=== PATIENT | male | born 1965 | race Caucasian/White ===

== ENCOUNTER 2019-11-16 13:36 | Outpatient (REF) | payer MEDICAID, SELFPAY ==
[2019-11-17 12:03] LABS: CT PCR NOT DETECTED (Not Detect.); NG PCR NOT DETECTED (Not Detect.)
== END 2019-11-16 13:37 | disposition home or self-care (01) ==
LOC: HO.LNP 13:36
PROVIDERS: Visit Provider Internal Medicine
DX: F11.20 Opioid dependence, uncomplicated (principal); R30.0 Dysuria
CPT/HCPCS: 80305; 87491; 87591; 99212

== ENCOUNTER → 2019-11-21 09:41 | Outpatient (BNVA) | payer MEDICAID, SELFPAY | PROVIDERS: PCP Internal Medicine; Visit Provider Physician Assistant | DX: Z01.818 Encounter for other preprocedural examination (principal); K21.9 Gastro-esophageal reflux disease without esophagitis | CPT/HCPCS: 99203 ==

== ENCOUNTER 2019-11-23 13:49 | Inpatient (IN) | payer MEDICAID, OTHER, SELFPAY ==
[2019-11-23 13:59] VITALS: BP 109/65; BP 136/76; PULSE 104; PULSE 72; RESP 18; TEMP 36.6; O2SAT 93; O2SAT 98; BMI 26.6
[2019-11-23 14:40] LABS: MANUAL DIFF FLAG NO
[2019-11-23 14:45] LABS: Basophils Percent Auto 0.2 % (0-2); Eosinophils Absolute Auto 0.1 X10*3/uL (0.0-0.4); Eosinophils Percent Auto 0.4 % (0-4); Hematocrit 35.8 % (42-52); Hemoglobin 12.4 g/dl (14.0-18.0); Imm Gran Abs Auto 0.06 X10*3/uL (0.00-0.03); Imm Gran Pct Auto 0.4 % (0.0-0.4); Lymphocytes Absolute Auto 2.1 X10*3/uL (1.2-4.9); Lymphocytes Percent Auto 13.6 % (20-40); Mean Corpuscular HGB Conc 34.6 g/dl (31.0-36.0); Mean Corpuscular Hemoglobin 31.6 pg (27.0-33.0); Mean Corpuscular Volume 91.1 fL (80-98); Mean Platelet Volume 8.9 fL (9.4-12.4); Monocytes Absolute Auto 0.8 X10*3/uL (0.1-1.2); Monocytes Percent Auto 5.2 % (2-11); Neutrophils Absolute Auto 12.4 X10*3/uL (2.0-8.3); Neutrophils Percent Auto 80.2 % (45-73); Platelet Count 161 X10*3/uL (160-400); Red Blood Count 3.93 X10*6/uL (4.60-5.80); Red Cell Distribution Width 12.2 % (11.0-16.0); White Blood Count 15.5 X10*3/uL (4.8-10.8)
[2019-11-23 15:03] LABS: Ethanol < 10 mg/dL
[2019-11-23 15:06] LABS: Amphetamine Screen Urine Not Detected (Not Detect); Barbiturates, Urine Not Detected (Not Detect); Benzodiazepines Screen Urine POSITIVE (Not Detect); Cannabinoid Screen Urine Not Detected (Not Detect); Cocaine Screen Urine POSITIVE (Not Detect); Opiate Screen Urine POSITIVE (Not Detect); Phencyclidine Screen Urine Not Detected (Not Detect)
[2019-11-23 15:10] LABS: Acetaminophen LAB < 1 mcg/mL (<30)
[2019-11-23 15:18] LABS: Salicylate < 5.0 mg/dL (15-30)
--- NOTE | 2019-11-23 15:43 | XR_ITS ---
EXAMINATION: XR CHEST CLINICAL INFORMATION: Leukocytosis COMPARISON: None TECHNIQUE: Frontal view of the chest was obtained. FINDINGS: The cardiac and mediastinal contours are normal. The lungs are clear without evidence of a pneumonia. There may be slight elevation of the right hemidiaphragm. There is no pleural effusion or pneumothorax. Bony structures are unremarkable. IMPRESSION: No evidence of pneumonia.
--- NOTE | 2019-11-23 15:43 | ECG_ITS ---
Test Reason : MEDICAL CLEARANCE Blood Pressure : / mmHG Vent. Rate : 075 BPM Atrial Rate : 075 BPM P-R Int : 160 ms QRS Dur : 098 ms QT Int : 404 ms P-R-T Axes : 058 -22 051 degrees QTc Int : 451 ms Normal sinus rhythm RSR' or QR pattern in V1 suggests right ventricular conduction delay Otherwise normal ECG No previous ECGs available Referred By: Lexa Cruz Electronically Signed By:SHARI MARCUS MD
--- NOTE | 2019-11-23 15:46 | ED_ITS ---
HPI - Psych General Chief Complaint: Psychiatric Symptoms <Lexa Cruz NP - Last Filed: 11/23/19 20:57> Stated Complaint: CRISIS <Lexa Cruz NP - Last Filed: 11/23/19 20:57> Time Seen by Provider: 11/23/19 15:42 <Lexa Cruz NP - Last Filed: 11/23/19 20:57> Source: patient <Lexa Cruz NP - Last Filed: 11/23/19 20:57> Mode of arrival: ambulatory <Lexa Cruz NP - Last Filed: 11/23/19 20:57> Limitations: no limitations <Lexa Cruz NP - Last Filed: 11/23/19 20:57> History of Present Illness HPI Narrative: 54-year-old male with past medical history that is significant for depression, anxiety, hypertension, gastroesophageal reflux disease and he reports history of polysubstance abuse with heroin and cocaine in the past has been clean for many years now on Suboxone has recently has had increased stressors in relation to his relationship and social stressors not wound to elaborate on this but did get into argument with his partner and has been feeling depressed and suicidal. No specific plan expressed. Otherwise he denies any medical complaints. No fever chills. No cough. No recent travel or sick contacts. <Lexa Cruz NP - Last Filed: 11/23/19 20:57> MD complaint: suicidal ideation and feels depressed <eLxa Cruz NP - Last Filed: 11/23/19 20:57> Onset (ago): day(s) <Lexa Cruz NP - Last Filed: 11/23/19 20:57> Duration: constant <Lexa Cruz NP - Last Filed: 11/23/19 20:57> History of same: Yes <Lexa Cruz NP - Last Filed: 11/23/19 20:57> Relieving factors: none <Lexa Cruz NP - Last Filed: 11/23/19 20:57> Exacerbating factors: other ( Social stressors) <Lexa Cruz NP - Last Filed: 11/23/19 20:57> Associated psychiatric symptoms: none <Lexa Cruz NP - Last Filed: 11/23/19 20:57> Associated symptoms: denies other symptoms <Lexa Cruz NP - Last Filed: 11/23/19 20:57> Treatments prior to arrival: none <Lexa Cruz NP - Last Filed: 11/23/19 20:57> If self harm: admits thoughts of self harm <Lexa Cruz NP - Last Filed: 11/23/19 20:57> Related Data Home Medications: Home Medications Medication Instructions Recorded Confirmed alprazolam 0.5 mg tablet 0.5 mg PO BID 11/16/19 11/21/19 fluoxetine 20 mg capsule 20 mg PO DAILY 11/16/19 11/21/19 lisinopril 5 mg tablet 5 mg PO DAILY 11/16/19 11/21/19 melatonin 5 mg capsule mg PO BEDTIME cap 11/16/19 11/21/19 naloxone 4 mg/actuation nasal spray 4 mg INTRANASAL Q2M PRN 11/16/19 11/21/19 omeprazole 20 mg capsule,delayed 20 mg PO DAILY 11/16/19 11/21/19 release valacyclovir 1 gram tablet 1,000 mg PO BID 11/16/19 11/21/19 Previous Rx's Medication Instructions Recorded buprenorphine 8 mg-naloxone 2 mg 2 film SUBLINGUAL DAILY 30 Days 11/16/19 sublingual film #60 ea bisacodyl 5 mg tablet,delayed 5 mg PO .COMPLEX #4 tab 11/21/19 release <Lexa Cruz NP - Last Filed: 11/23/19 20:57> Allergies/Adverse Reactions: Allergies Allergy/AdvReac Type Severity Reaction Status Date / Time sulfamethoxazole Allergy Nausea and Verified 11/16/19 14:07 [From Bactrim] Vomiting trimethoprim [From Bactrim] Allergy Nausea and Verified 11/16/19 14:07 Vomiting <Lexa Cruz NP - Last Filed: 11/23/19 20:57> Review of Systems Review of Systems: Constitutional: No Weight loss, No Fever, No Chills, No Night Sweats, No Fatigue, No Malaise ENT/Mouth: No Hearing loss, No Ear Pain, No Nasal Congestion, No Sinus Pain, No Hoarseness, No sore throat, No Rhinorrhea, No Swallowing Difficulty Eyes: No Eye Pain, No Swelling, No Redness, No Foreign Body, No Discharge, No Vision Changes Cardiovascular: No Chest Pain, No SOB, No Dyspnea on Exertion, No Orthopnea, No Edema, No Palpitations Respiratory: No Cough, No Sputum, No Wheezing, No Smoke Exposure, No Dyspnea Gastrointestinal: No Nausea, No Vomiting, No Diarrhea, No Constipation, No abdominal Pain, No Hematochezia, No Melena Genitourinary: no irregular bleeding, No Dysuria, No Urinary Frequency, No Hematuria, No Urinary Incontinence, No Urgency, No Flank Pain, No Urinary Flow Changes, No Hesitancy Musculoskeletal: No joint pain, No Myalgias, No Joint Swelling Skin: No Skin Lesions, No rash Neuro: No Weakness, No Numbness, No Paresthesias, No Loss of Consciousness, No Dizziness, No Headache Psych: as noted in HPI Heme/Lymph: No Bruising, No Bleeding,No Lymphadenopathy Endocrine: No Polyuria, No Polydipsia, No Temperature Intolerance <Lexa Cruz NP - Last Filed: 11/23/19 20:57> Yes all other systems are reviewed and are negative <Lexa Cruz NP - Last Filed: 11/23/19 20:57> [facility] Past Medical History Attestation statement: The following information was validated with the patient. <Lexa Cruz NP - Last Filed: 11/23/19 20:57> Medical History: Medical History (Updated 11/23/19 @ 20:57 by Lexa Cruz NP) Acid reflux Asthma Dysuria Encounter for screening colonoscopy Opioid use disorder <Lexa Cruz NP - Last Filed: 11/23/19 20:57> Surgical History: Surgical History (Updated 11/21/19 @ 09:44 by Cyndie Ernandez MA) History of colonoscopy Hx of endoscopy <Lexa Cruz NP - Last Filed: 11/23/19 20:57> Family History Family History: Family History (Updated 11/21/19 @ 09:46 by Cyndie Ernandez MA) Father History of stomach cancer Mother Hx of diabetes mellitus <Lexa Cruz NP - Last Filed: 11/23/19 20:57> Social History Social History: Social History (Updated 11/21/19 @ 10:05 by Nayeli Colon PA-C) Alcohol intake: never Smoking Status: Never smoker Smoked in Last 30 Days: No Use of substances other than those prescribed or required for medical reasons: Yes Substance Use Type: Opiates Advance Directives: No Advance Directives Information Provided: Yes <Lexa Cruz NP - Last Filed: 11/23/19 20:57> Physical Exam Vital Signs: Vital Signs: Vital Signs Temp Pulse Resp BP Pulse Ox 11/23/19 17:02 97.4 F 78 16 60/55 L 95 11/23/19 13:59 98 F 104 H 18 109/65 93 Body Mass Index 26.6 Reviewed <Lexa Cruz NP - Last Filed: 11/23/19 20:57> Vital Signs: Vital Signs Temp Pulse Resp BP Pulse Ox 11/23/19 17:02 97.4 F 78 16 60/55 L 95 11/23/19 13:59 98 F 104 H 18 109/65 93 Body Mass Index 26.6 <Yuan Ren MD - Last Filed: 11/23/19 21:17> Course Course Course Narrative: I have reviewed the chart <Yuan Ren MD - Last Filed: 11/23/19 21:17> Reevaluation(s) Reevaluation #1: at this time resting comfortably eating drinking. Labs reveal significant leukocytosis of 15.2 with comparison to his previous 2 which are 5. his drug screen shows positive for opiates and cocaine. Now endorses cocaine use. Could be a source of his leukocytosis. EKG chest x-ray and rapid COVID ordered before medical clearance. Remained stable. Hemodynamically stable. <Lexa Cruz NP - Last Filed: 11/23/19 20:57> Time: 15:45 <Lexa Cruz NP - Last Filed: 11/23/19 20:57> Reevaluation #3: 2110 Sign out to night team pending crisis evaluation. Remained stable. <Lexa Cruz NP - Last Filed: 11/23/19 20:57> MDM - Psych MDM Narrative Medical decision making narrative: offers no medical complaints. At this time will obtain medical screening labs and crisis evaluation <Lexa Cruz NP - Last Filed: 11/23/19 20:57> Differential Diagnosis Differential diagnosis: Likely acute psychosis, homicidal ideation, suicidal ideation, depression, drug-induced psychotic disorder, acute anxiety, substance abuse and mood disorde r <Lexa Cruz NP - Last Filed: 11/23/19 20:57> Restraints Face to Face Assessment: Face to Face Assessment: Current Situation: After assessment of the patient, a review of the pertinent medical record and a discussion with nursing staff, I feel the patient requires a restrain intervention. Reaction To: [] Medical Condition: [] Behavioral State: [] Continued Need: [] <Lexa Cruz NP - Last Filed: 11/23/19 20:57> Lab Data Result diagrams: : 11/23/19 14:30 <Lexa Cruz NP - Last Filed: 11/23/19 20:57> Labs: Lab Results 11/23/19 11/23/19 11/23/19 Range/Units 14:30 14:30 14:30 WBC 15.5 H (4.8-10.8) X10*3/uL RBC 3.93 L (4.60-5.80) X10*6/uL Hgb 12.4 L (14.0-18.0) g/dl Hct 35.8 L (42-52) % MCV 91.1 (80-98) fL MCH 31.6 (27.0-33.0) pg MCHC 34.6 (31.0-36.0) g/dl RDW 12.2 (11.0-16.0) % Plt Count 161 (160-400) X10*3/uL MPV 8.9 L (9.4-12.4) fL Immature Gran % (Auto) 0.4 (0.0-0.4) % Neut % (Auto) 80.2 H (45-73) % Lymph % (Auto) 13.6 L (20-40) % Benson % (Auto) 5.2 (2-11) % Eos % (Auto) 0.4 (0-4) % Baso % (Auto) 0.2 (0-2) % Lymph # (Auto) 2.1 (1.2-4.9) X10*3/uL Benson # (Auto) 0.8 (0.1-1.2) X10*3/uL Eos # (Auto) 0.1 (0.0-0.4) X10*3/uL Baso # (Auto) 0.0 (0.0-0.2) X10*3/uL Abs Immat Gran (auto) 0.06 H (0.00-0.03) X10*3/uL Absolute Neuts (auto) 12.4 H (2.0-8.3) X10*3/uL Absolute Nucleated RBC 0.000 (0.0-0.012) X10*3/uL Nucleated RBC % (auto) 0.0 (0.0-0.2) /100WBC Salicylates < 5.0 L (15-30) mg/dL Urine Opiates Screen POSITIVE H (Not Detect) Acetaminophen < 1 (<30) mcg/mL Ur Barbiturates Screen Not Detected (Not Detect) Ur Phencyclidine Scrn Not Detected (Not Detect) Ur Amphetamines Screen Not Detected (Not Detect) U Benzodiazepines Scrn POSITIVE H (Not Detect) Urine Cocaine Screen POSITIVE H (Not Detect) U Marijuana (THC) Screen Not Detected (Not Detect) Ethyl Alcohol mg/dL 1016/20 Range/Units 14:30 WBC (4.8-10.8) X10*3/uL RBC (4.60-5.80) X10*6/uL Hgb (14.0-18.0) g/dl Hct (42-52) % MCV (80-98) fL MCH (27.0-33.0) pg MCHC (31.0-36.0) g/dl RDW (11.0-16.0) % Plt Count (160-400) X10*3/uL MPV (9.4-12.4) fL Immature Gran % (Auto) (0.0-0.4) % Neut % (Auto) (45-73) % Lymph % (Auto) (20-40) % Benson % (Auto) (2-11) % Eos % (Auto) (0-4) % Baso % (Auto) (0-2) % Lymph # (Auto) (1.2-4.9) X10*3/uL Benson # (Auto) (0.1-1.2) X10*3/uL Eos # (Auto) (0.0-0.4) X10*3/uL Baso # (Auto) (0.0-0.2) X10*3/uL Abs Immat Gran (auto) (0.00-0.03) X10*3/uL Absolute Neuts (auto) (2.0-8.3) X10*3/uL Absolute Nucleated RBC (0.0-0.012) X10*3/uL Nucleated RBC % (auto) (0.0-0.2) /100WBC Salicylates (15-30) mg/dL Urine Opiates Screen (Not Detect) Acetaminophen (<30) mcg/mL Ur Barbiturates Screen (Not Detect) Ur Phencyclidine Scrn (Not Detect) Ur Amphetamines Screen (Not Detect) U Benzodiazepines Scrn (Not Detect) Urine Cocaine Screen (Not Detect) U Marijuana (THC) Screen (Not Detect) Ethyl Alcohol < 10 mg/dL <Lexa Cruz NP - Last Filed: 11/23/19 20:57> Lab Results 11/23/19 11/23/19 11/23/19 Range/Units 14:30 14:30 14:30 WBC 15.5 H (4.8-10.8) X10*3/uL RBC 3.93 L (4.60-5.80) X10*6/uL Hgb 12.4 L (14.0-18.0) g/dl Hct 35.8 L (42-52) % MCV 91.1 (80-98) fL MCH 31.6 (27.0-33.0) pg MCHC 34.6 (31.0-36.0) g/dl RDW 12.2 (11.0-16.0) % Plt Count 161 (160-400) X10*3/uL MPV 8.9 L (9.4-12.4) fL Immature Gran % (Auto) 0.4 (0.0-0.4) % Neut % (Auto) 80.2 H (45-73) % Lymph % (Auto) 13.6 L (20-40) % Benson % (Auto) 5.2 (2-11) % Eos % (Auto) 0.4 (0-4) % Baso % (Auto) 0.2 (0-2) % Lymph # (Auto) 2.1 (1.2-4.9) X10*3/uL Benson # (Auto) 0.8 (0.1-1.2) X10*3/uL Eos # (Auto) 0.1 (0.0-0.4) X10*3/uL Baso # (Auto) 0.0 (0.0-0.2) X10*3/uL Abs Immat Gran (auto) 0.06 H (0.00-0.03) X10*3/uL Absolute Neuts (auto) 12.4 H (2.0-8.3) X10*3/uL Absolute Nucleated RBC 0.000 (0.0-0.012) X10*3/uL Nucleated RBC % (auto) 0.0 (0.0-0.2) /100WBC Salicylates < 5.0 L (15-30) mg/dL Urine Opiates Screen POSITIVE H (Not Detect) Acetaminophen < 1 (<30) mcg/mL Ur Barbiturates Screen Not Detected (Not Detect) Ur Phencyclidine Scrn Not Detected (Not Detect) Ur Amphetamines Screen Not Detected (Not Detect) U Benzodiazepines Scrn POSITIVE H (Not Detect) Urine Cocaine Screen POSITIVE H (Not Detect) U Marijuana (THC) Screen Not Detected (Not Detect) Ethyl Alcohol mg/dL 11/23/19 Range/Units 14:30 WBC (4.8-10.8) X10*3/uL RBC (4.60-5.80) X10*6/uL Hgb (14.0-18.0) g/dl Hct (42-52) % MCV (80-98) fL MCH (27.0-33.0) pg MCHC (31.0-36.0) g/dl RDW (11.0-16.0) % Plt Count (160-400) X10*3/uL MPV (9.4-12.4) fL Immature Gran % (Auto) (0.0-0.4) % Neut % (Auto) (45-73) % Lymph % (Auto) (20-40) % Benson % (Auto) (2-11) % Eos % (Auto) (0-4) % Baso % (Auto) (0-2) % Lymph # (Auto) (1.2-4.9) X10*3/uL Benson # (Auto) (0.1-1.2) X10*3/uL Eos # (Auto) (0.0-0.4) X10*3/uL Baso # (Auto) (0.0-0.2) X10*3/uL Abs Immat Gran (auto) (0.00-0.03) X10*3/uL Absolute Neuts (auto) (2.0-8.3) X10*3/uL Absolute Nucleated RBC (0.0-0.012) X10*3/uL Nucleated RBC % (auto) (0.0-0.2) /100WBC Salicylates (15-30) mg/dL Urine Opiates Screen (Not Detect) Acetaminophen (<30) mcg/mL Ur Barbiturates Screen (Not Detect) Ur Phencyclidine Scrn (Not Detect) Ur Amphetamines Screen (Not Detect) U Benzodiazepines Scrn (Not Detect) Urine Cocaine Screen (Not Detect) U Marijuana (THC) Screen (Not Detect) Ethyl Alcohol < 10 mg/dL <Yuan Ren MD - Last Filed: 11/23/19 21:17> Imaging Data Chest x-ray: Radiologist's impression: [place] [id number] XRay Report Signed Patient: Rohan SalazarMR#: [id number] : 1965Acct:[id number] Age/Sex: 54 / MADM Date: 11/23/19 Loc: .ED Attending Dr: Ordering Physician: Lexa Cruz NP Date of Service: 11/23/19 Procedure(s): XR chest 1V Accession Number(s): [id number] cc: Lexa Cruz NP~ EXAMINATION: XR CHEST CLINICAL INFORMATION: Leukocytosis COMPARISON: None TECHNIQUE: Frontal view of the chest was obtained. FINDINGS: The cardiac and mediastinal contours are normal. The lungs are clear without evidence of a pneumonia. There may be slight elevation of the right hemidiaphragm. There is no pleural effusion or pneumothorax. Bony structures are unremarkable. IMPRESSION: No evidence of pneumonia. Dictated By:EVE BARAJAS MD Signed By:<Electronically signed by EVE BARAJAS MD in OV>11/23/19 1618 DD/ 1543 TD/TT: [employer] Operator: GERMAN <Lexa Crzu NP - Last Filed: 11/23/19 20:57> ECG Data Interpretation: Normal sinus rhythm Heart rate [address] segment changes No previous <Lexa Cruz NP - Last Filed: 11/23/19 20:57> Discharge Plan Discharge Clinical Impression: Depression, Drug-induced psychotic disorder, Polysubstance abuse <Lexa Cruz NP - Last Filed: 11/23/19 20:57> Prescriptions: No Action alprazolam 0.5 mg tablet 0.5 mg PO BID RF: 0 valacyclovir [Valtrex] 1 gram tablet 1,000 mg PO BID RF: 0 Narcan 4 mg/actuation spray,non-aerosol 4 mg intranasal Q2M PRNRF: 0 lisinopril 5 mg tablet 5 mg PO DAILY RF: 0 melatonin 5 mg capsule PO BEDTIME RF: 0 omeprazole 20 mg capsule,delayed release(DR/EC) 20 mg PO DAILY RF: 0 fluoxetine [Prozac] 20 mg capsule 20 mg PO DAILY RF: 0 buprenorphine-naloxone [Suboxone] 8-2 mg film 2 film sublingual DAILY 30 Days Qty: 60 RF: 0 bisacodyl [Dulcolax (bisacodyl)] 5 mg tablet,delayed release (DR/EC) 5 mg PO .COMPLEX Qty: 4 RF: 0 <Lexa Cruz NP - Last Filed: 11/23/19 20:57>
--- NOTE | 2019-11-23 16:44 | PC.NURSE ---
Late entry: reviewed labs w/ a liana- pt to xray as ordered, now returned.
[2019-11-23 17:02] VITALS: BP 60/55; PULSE 78; RESP 16; TEMP 36.3; O2SAT 95
--- NOTE | 2019-11-23 18:39 | PC.NURSE ---
Pt resting, resp unlabored. Covid testing held per Carlos Cruz.
--- NOTE | 2019-11-23 18:48 | PC.NURSE ---
faxed and called to [facility]
--- NOTE | 2019-11-23 20:18 | PC.NURSE ---
Pt currently sleeping. No signs of distress, respirations non-labored.
[2019-11-23 21:40] VITALS: BP 111/72; PULSE 82; RESP 18; TEMP 36.3; O2SAT 95
[2019-11-23] MEDS: ALPRAZolam 0.5 MG TABLET PO (22:29)
[2019-11-23] MEDS: Buprenorphine/Naloxone 8/2 mg FILM 2 FILM SUBLINGUAL (22:29)
[2019-11-23] MEDS: Zolpidem Tartrate 5 MG TABLET 10 MG PO (22:38)
--- NOTE | 2019-11-24 00:28 | PC.NURSE ---
REPORT GIVEN TO MARGE MONCADA ON [facility], AWAITING COVID RESULTS AND THEN PT WILL BE TRANSFERRED TO [facility]
[2019-11-24 00:33] LABS: SARS COV2 PCR INHOUSE NEGATIVE (Negative)
[2019-11-24 01:55] VITALS: BP 106/59; PULSE 80; RESP 18; TEMP 36.6; O2SAT 95; BMI 27.3
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
[2019-11-24 06:00] VITALS: BP 101/67; PULSE 79; RESP 18; TEMP 36.3
[2019-11-24 08:50] VITALS: BP 101/67; PULSE 79
[2019-11-24] MEDS: Omeprazole 20 MG CAPSULE.DR PO (08:50)
[2019-11-24] MEDS: FLUoxetine HCl 20 MG CAPSULE PO (08:50)
[2019-11-24] MEDS: ALPRAZolam 0.5 MG TABLET PO ×2 (08:50→21:53)
[2019-11-24] MEDS: lisinopriL 5 MG TABLET PO (08:50)
[2019-11-24 09:27] VITALS: O2SAT 98
[2019-11-24] MEDS: Buprenorphine/Naloxone 8/2 mg FILM 1 FILM SUBLINGUAL ×2 (09:44→22:17)
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
[2019-11-24] MEDS: Zolpidem Tartrate 5 MG TABLET 10 MG PO (21:57)
[2019-11-24] MEDS: Acetaminophen 325 MG TABLET 650 MG PO (22:32)
[2019-11-25 06:20] VITALS: BP 110/68; PULSE 60; RESP 16; TEMP 36.3
[2019-11-25] MEDS: Omeprazole 20 MG CAPSULE.DR PO (06:52)
[2019-11-25 07:31] LABS: MANUAL DIFF FLAG NO
[2019-11-25 07:55] LABS: Basophils Percent Auto 0.6 % (0-2); Eosinophils Absolute Auto 0.9 X10*3/uL (0.0-0.4); Eosinophils Percent Auto 12.7 % (0-4); Hematocrit 41.2 % (42-52); Hemoglobin 13.6 g/dl (14.0-18.0); Imm Gran Abs Auto 0.03 X10*3/uL (0.00-0.03); Imm Gran Pct Auto 0.4 % (0.0-0.4); Lymphocytes Absolute Auto 2.8 X10*3/uL (1.2-4.9); Mean Corpuscular Hemoglobin 31.1 pg (27.0-33.0); Mean Corpuscular Volume 94.1 fL (80-98); Monocytes Absolute Auto 0.8 X10*3/uL (0.1-1.2); Monocytes Percent Auto 11.5 % (2-11); Neutrophils Absolute Auto 2.2 X10*3/uL (2.0-8.3); Neutrophils Percent Auto 32.8 % (45-73); Platelet Count 194 X10*3/uL (160-400); Red Blood Count 4.38 X10*6/uL (4.60-5.80); Red Cell Distribution Width 12.2 % (11.0-16.0); White Blood Count 6.8 X10*3/uL (4.8-10.8)
[2019-11-25 08:14] LABS: Alanine Aminotransferase 9 U/L (0-40); Albumin Level 4.2 g/dL (3.5-5.0); Alkaline Phosphatase 94 U/L (39-117); Anion Gap 11 (12-20); Aspartate Amino Transferase 13 U/L (5-37); Bilirubin Total 0.2 mg/dL (0.0-1.0); Blood Urea Nitrogen 17 mg/dL (9-16); Calcium 9.3 mg/dL (8.4-10.2); Carbon Dioxide 29 mmol/L (22-29); Chloride 102 mmol/L (96-108); Cholesterol 152 mg/dL; Creatinine Clr Calc Pharmacy 73.7; Estimated Glomerular Filt Rate > 60; Glucose Fasting 97 mg/dL (60-99); HDL Cholesterol 29 mg/dL; LDL Cholesterol Calculated 86 mg/dl; Potassium 4.6 mmol/l (3.3-5.1); Sodium 137 mmol/L (135-145); Total Protein 7.8 g/dL (6.5-8.0); Triglycerides 187 mg/dL
[2019-11-25 08:34] LABS: TSH reflex Free T4 0.98 mIU/mL (0.32-4.0)
[2019-11-25 08:42] LABS: Reflex LDLD? No
[2019-11-25 09:11] VITALS: BP 110/68; PULSE 60
[2019-11-25] MEDS: FLUoxetine HCl 20 MG CAPSULE 60 MG PO (09:11)
[2019-11-25] MEDS: lisinopriL 20 MG TABLET PO (09:11)
[2019-11-25] MEDS: ALPRAZolam 0.5 MG TABLET PO ×2 (09:11→21:44)
[2019-11-25] MEDS: Buprenorphine/Naloxone 8/2 mg FILM 1 FILM SUBLINGUAL ×2 (09:11→21:44)
[2019-11-25] MEDS: Acetaminophen 325 MG TABLET 650 MG PO (17:03)
[2019-11-25] MEDS: Zolpidem Tartrate 5 MG TABLET 10 MG PO (21:44)
[2019-11-25 21:49] VITALS: BP 143/85; PULSE 66; TEMP 35.9
--- NOTE | 2019-11-25 23:18 | HO.PSYCHPN ---
Subjective Subjective Reason For Visit: suicidal ideation Subjective Notes: Conditional Voluntary Interim History: patient calm cooperative taking an information regarding intermittent explosive disorder discussed option of propranolol and anti seizure med Medication Compliance: Yes Side effects from medications: No Attending Groups: Intermittent Mental Status Exam Mental Status Exam Narrative: denies active SI or HI in this setting Patient Appearance: Well Grooomed Patient Orientation: Person, Place, Time and Situation Level of Consciousness: Awake Patient Behavior: Appropriate and Isolative Mood Description: Depressed and Apprehensive Affect Description: Depressed and Flat Memory Description: Intact Thought Content: positive for Intact Depressive Symptoms: Increased Anxiety Judgement: Fair Diagnostics Vital Signs (24Hr): Vital Signs - 24 hr 11/25/19 06:20 11/25/19 09:11 11/25/19 21:49 Temperature 97.4 F 96.6 F L Pulse Rate 60 60 66 Respiratory Rate 16 Blood Pressure 110/68 110/68 143/85 H Body Mass Index 27.3 Labs Results: 11/25/19 07:16 11/25/19 07:16 Labs: Laboratory Results - last 48 hr 11/23/19 11/25/19 11/25/19 23:26 07:16 07:16 WBC 6.8 RBC 4.38 L Hgb 13.6 L Hct 41.2 L MCV 94.1 MCH 31.1 MCHC 33.0 RDW 12.2 Plt Count 194 MPV 9.0 L Immature Gran % (Auto) 0.4 Neut % (Auto) 32.8 L Lymph % (Auto) 42.0 H [place] % (Auto) 11.5 H Eos % (Auto) 12.7 H Baso % (Auto) 0.6 Lymph # (Auto) 2.8 [place] # (Auto) 0.8 Eos # (Auto) 0.9 H Baso # (Auto) 0.0 Abs Immat Gran (auto) 0.03 Absolute Neuts (auto) 2.2 Absolute Nucleated RBC 0.000 Nucleated RBC % (auto) 0.0 Sodium 137 Potassium 4.6 Chloride 102 Carbon Dioxide 29 Anion Gap 11 L BUN 17 H Creatinine 1.17 Estim Creat Clear Calc 73.7 Estimated GFR > 60 Fasting Glucose 97 Calcium 9.3 Total Bilirubin 0.2 AST 13 ALT 9 Alkaline Phosphatase 94 Total Protein 7.8 Albumin 4.2 Triglycerides 187 Cholesterol 152 LDL Cholesterol, Calc 86 HDL Cholesterol 29 TSH 0.98 Coronavirus (PCR) NEGATIVE Medications Medications Current Medications Generic Name Dose Route Start Last Admin Trade Name Freq PRN Reason Stop Dose Admin Acetaminophen 650 mg 11/24/19 02:09 11/25/19 17:03 Acetaminophen 325 Mg Tablet PO 650 mg Q6H PRN Administration Headache/Pain Mild Scale (1-3) Al Hydroxide/Mg Hydroxide 30 ml 11/24/19 02:09 Magnesium Hydrox/Alum Hydrox 30 Ml Oral.Susp PO Q6H PRN Heartburn/Nausea Alprazolam 0.5 mg 11/24/19 09:00 11/25/19 21:44 Alprazolam 0.5 Mg Tablet PO 0.5 mg BID ANDREAS Administration Bisacodyl 5 mg 11/23/19 22:15 Bisacodyl 5 Mg Tablet. PO .COMPLEX [facility] Buprenorphine/Naloxone 1 film 11/24/19 09:00 11/25/19 21:44 Buprenorphine/Naloxone 8/2 Mg Film SUBLINGUAL 1 film BID ANDREAS Administration Fluoxetine HCl 60 mg 11/25/19 09:00 11/25/19 09:11 Fluoxetine Hcl 20 Mg Capsule PO 60 mg DAILY ANDREAS Administration Hydroxyzine HCl 25 mg 11/24/19 02:09 Hydroxyzine Hcl 25 Mg Tablet PO BEDTIME PRN Anxiety Lisinopril 20 mg 11/25/19 09:00 11/25/19 09:11 Lisinopril 20 Mg Tablet PO 20 mg DAILY ANDREAS Administration Protocol Magnesium Hydroxide 30 ml 11/24/19 02:09 Milk Of Magnesia 30 Ml Oral.Susp PO DAILY PRN Constipation Omeprazole 20 mg 11/25/19 06:30 11/25/19 06:52 Omeprazole 20 Mg Capsule. PO 20 mg DAILY@0630 ANDREAS Administration Trazodone HCl 50 mg 11/24/19 02:09 Trazodone Hcl 50 Mg Tablet PO BEDTIME PRN Insomnia Zolpidem Tartrate 10 mg 11/23/19 22:35 11/25/19 21:44 Zolpidem Tartrate 5 Mg Tablet PO 10 mg BEDTIME PRN Administration Sleep Allergies Allergies Allergy/AdvReac Type Severity Reaction Status Date / Time sulfamethoxazole Allergy Nausea and Verified 11/16/19 14:07 [From Bactrim] Vomiting trimethoprim [From Bactrim] Allergy Nausea and Verified 11/16/19 14:07 Vomiting Assessment & Plan Assessment & Plan (1) Major depression, recurrent, chronic: Status: Acute Code(s): F33.9 - Major depressive disorder, recurrent, unspecified (2) Intermittent explosive disorder: Status: Acute Code(s): F63.81 - Intermittent explosive disorder Assessment and Plan: continue Prozac alprazolam Suboxone consider anti seizure med consider referral to sober house setting question respite Greater than 50% of the session was spent on counseling and/or coordination of care
[2019-11-26 06:15] VITALS: BP 117/63; PULSE 65; RESP 16; TEMP 36.2; O2SAT 95
[2019-11-26] MEDS: Omeprazole 20 MG CAPSULE.DR PO (06:38)
[2019-11-26 09:06] VITALS: BP 117/63; PULSE 65
[2019-11-26] MEDS: ALPRAZolam 0.5 MG TABLET PO ×2 (09:06→21:42)
[2019-11-26] MEDS: Buprenorphine/Naloxone 8/2 mg FILM 1 FILM SUBLINGUAL ×2 (09:06→21:43)
[2019-11-26] MEDS: lisinopriL 20 MG TABLET PO (09:06)
[2019-11-26] MEDS: FLUoxetine HCl 20 MG CAPSULE 60 MG PO (09:06)
[2019-11-26 16:13] VITALS: BP 117/76; PULSE 68; TEMP 36
[2019-11-26] MEDS: Acetaminophen 325 MG TABLET 650 MG PO (21:42)
[2019-11-26] MEDS: Zolpidem Tartrate 5 MG TABLET 10 MG PO (21:42)
--- NOTE | 2019-11-26 23:13 | HO.PSYCHPN ---
Subjective Subjective Reason For Visit: suicidal ideation Interim History: patient calm cooperative taking an information regarding intermittent explosive disorder discussed option of propranolol and anti seizure med patient agreeable to referral to [facility] does not want medication Mental Status Exam Mental Status Exam Narrative: denies active SI or HI in this setting this continues to be true Patient Appearance: Well Grooomed Patient Orientation: Person, Place, Time and Situation Level of Consciousness: Awake Patient Behavior: Appropriate and Isolative Mood Description: Depressed and Apprehensive Affect Description: Depressed and Flat Memory Description: Intact Diagnostics Vital Signs (24Hr): Vital Signs - 24 hr 11/26/19 06:15 11/26/19 09:06 11/26/19 16:13 Temperature 97.2 F 96.8 F Pulse Rate 65 65 68 Respiratory Rate 16 Blood Pressure 117/63 117/63 117/76 Pulse Oximetry 95 Body Mass Index 27.3 Labs Results: 11/25/19 07:16 11/25/19 07:16 Labs: Laboratory Results - last 48 hr 11/25/19 11/25/19 07:16 07:16 WBC 6.8 RBC 4.38 L Hgb 13.6 L Hct 41.2 L MCV 94.1 MCH 31.1 MCHC 33.0 RDW 12.2 Plt Count 194 MPV 9.0 L Immature Gran % (Auto) 0.4 Neut % (Auto) 32.8 L Lymph % (Auto) 42.0 H [place] % (Auto) 11.5 H Eos % (Auto) 12.7 H Baso % (Auto) 0.6 Lymph # (Auto) 2.8 [place] # (Auto) 0.8 Eos # (Auto) 0.9 H Baso # (Auto) 0.0 Abs Immat Gran (auto) 0.03 Absolute Neuts (auto) 2.2 Absolute Nucleated RBC 0.000 Nucleated RBC % (auto) 0.0 Sodium 137 Potassium 4.6 Chloride 102 Carbon Dioxide 29 Anion Gap 11 L BUN 17 H Creatinine 1.17 Estim Creat Clear Calc 73.7 Estimated GFR > 60 Fasting Glucose 97 Calcium 9.3 Total Bilirubin 0.2 AST 13 ALT 9 Alkaline Phosphatase 94 Total Protein 7.8 Albumin 4.2 Triglycerides 187 Cholesterol 152 LDL Cholesterol, Calc 86 HDL Cholesterol 29 TSH 0.98 Medications Medications Current Medications Generic Name Dose Route Start Last Admin Trade Name Freq PRN Reason Stop Dose Admin Acetaminophen 650 mg 11/24/19 02:09 11/26/19 21:42 Acetaminophen 325 Mg Tablet PO 650 mg Q6H PRN Administration Headache/Pain Mild Scale (1-3) Al Hydroxide/Mg Hydroxide 30 ml 11/24/19 02:09 Magnesium Hydrox/Alum Hydrox 30 Ml Oral.Susp PO Q6H PRN Heartburn/Nausea Alprazolam 0.5 mg 11/24/19 09:00 11/26/19 21:42 Alprazolam 0.5 Mg Tablet PO 0.5 mg BID ANDREAS Administration Bisacodyl 5 mg 11/23/19 22:15 Bisacodyl 5 Mg Tablet. PO .COMPLEX ANDREAS Buprenorphine/Naloxone 1 film 11/24/19 09:00 11/26/19 21:43 Buprenorphine/Naloxone 8/2 Mg Film SUBLINGUAL 1 film BID ANDREAS Administration Fluoxetine HCl 60 mg 11/25/19 09:00 11/26/19 09:06 Fluoxetine Hcl 20 Mg Capsule PO 60 mg DAILY ANDREAS Administration Hydroxyzine HCl 25 mg 11/24/19 02:09 Hydroxyzine Hcl 25 Mg Tablet PO BEDTIME PRN Anxiety Lisinopril 20 mg 11/25/19 09:00 11/26/19 09:06 Lisinopril 20 Mg Tablet PO 20 mg DAILY [facility] Administration Protocol Magnesium Hydroxide 30 ml 11/24/19 02:09 Milk Of Magnesia 30 Ml Oral.Susp PO DAILY PRN Constipation Omeprazole 20 mg 11/25/19 06:30 11/26/19 06:38 Omeprazole 20 Mg Capsule. PO 20 mg DAILY@0630 [facility] Administration Trazodone HCl 50 mg 11/24/19 02:09 Trazodone Hcl 50 Mg Tablet PO BEDTIME PRN Insomnia Zolpidem Tartrate 10 mg 11/23/19 22:35 11/26/19 21:42 Zolpidem Tartrate 5 Mg Tablet PO 10 mg BEDTIME PRN Administration Sleep Allergies Allergies Allergy/AdvReac Type Severity Reaction Status Date / Time sulfamethoxazole Allergy Nausea and Verified 11/16/19 14:07 [From Bactrim] Vomiting trimethoprim [From Bactrim] Allergy Nausea and Verified 11/16/19 14:07 Vomiting Assessment & Plan Assessment & Plan (1) Major depression, recurrent, chronic: Status: Acute Code(s): F33.9 - Major depressive disorder, recurrent, unspecified (2) Intermittent explosive disorder: Status: Acute Code(s): F63.81 - Intermittent explosive disorder Assessment and Plan: continue Prozac alprazolam Suboxone consider anti seizure med consider referral to sober house setting does not wish Depakote or propranolol Greater than 50% of the session was spent on counseling and/or coordination of care
[2019-11-27] MEDS: Omeprazole 20 MG CAPSULE.DR PO (06:38)
[2019-11-27 06:40] VITALS: BP 98/58; PULSE 60; RESP 18; TEMP 36.3
[2019-11-27 08:54] VITALS: BP 98/58; PULSE 60
[2019-11-27] MEDS: ALPRAZolam 0.5 MG TABLET PO ×2 (08:54→22:10)
[2019-11-27] MEDS: lisinopriL 20 MG TABLET PO (08:54)
[2019-11-27] MEDS: FLUoxetine HCl 20 MG CAPSULE 60 MG PO (08:54)
[2019-11-27] MEDS: Buprenorphine/Naloxone 8/2 mg FILM 1 FILM SUBLINGUAL ×2 (08:55→22:10)
[2019-11-27 18:00] VITALS: BP 120/66; PULSE 70; TEMP 35.7
[2019-11-27] MEDS: Acetaminophen 325 MG TABLET 650 MG PO (22:13)
[2019-11-27] MEDS: Zolpidem Tartrate 5 MG TABLET 10 MG PO (22:14)
--- NOTE | 2019-11-27 22:27 | HO.PSYCHPN ---
Subjective Subjective Reason For Visit: suicidal ideation Subjective Notes: Conditional Voluntary Interim History: Patient flat agreeable to CSS denies active SI anxious and tenuous Medication Compliance: Yes Side effects from medications: No Mental Status Exam Mental Status Exam Narrative: denies active SI or HI in this setting this continues to be true Patient Appearance: Well Grooomed Patient Orientation: Person, Place, Time and Situation Level of Consciousness: Awake Patient Behavior: Appropriate and Isolative Mood Description: Depressed and Apprehensive Affect Description: Depressed and Flat Memory Description: Intact Diagnostics Vital Signs (24Hr): Vital Signs - 24 hr 11/27/19 06:40 11/27/19 08:54 11/27/19 18:00 Temperature 97.4 F 96.3 F L Pulse Rate 60 60 70 Respiratory Rate 18 Blood Pressure 98/58 L 98/58 L 120/66 Body Mass Index 27.3 Labs Results: 11/25/19 07:16 11/25/19 07:16 Medications Medications Current Medications Generic Name Dose Route Start Last Admin Trade Name Freq PRN Reason Stop Dose Admin Acetaminophen 650 mg 11/24/19 02:09 11/27/19 22:13 Acetaminophen 325 Mg Tablet PO 650 mg Q6H PRN Administration Headache/Pain Mild Scale (1-3) Al Hydroxide/Mg Hydroxide 30 ml 11/24/19 02:09 Magnesium Hydrox/Alum Hydrox 30 Ml Oral.Susp PO Q6H PRN Heartburn/Nausea Alprazolam 0.5 mg 11/24/19 09:00 11/27/19 22:10 Alprazolam 0.5 Mg Tablet PO 0.5 mg BID ANDREAS Administration Bisacodyl 5 mg 11/23/19 22:15 Bisacodyl 5 Mg Tablet. PO .COMPLEX ANDREAS Buprenorphine/Naloxone 1 film 11/24/19 09:00 11/27/19 22:10 Buprenorphine/Naloxone 8/2 Mg Film SUBLINGUAL 1 film BID ANDREAS Administration Fluoxetine HCl 60 mg 11/25/19 09:00 11/27/19 08:54 Fluoxetine Hcl 20 Mg Capsule PO 60 mg DAILY ANDREAS Administration Hydroxyzine HCl 25 mg 11/24/19 02:09 Hydroxyzine Hcl 25 Mg Tablet PO BEDTIME PRN Anxiety Lisinopril 20 mg 11/25/19 09:00 11/27/19 08:54 Lisinopril 20 Mg Tablet PO 20 mg DAILY ANDREAS Administration Protocol Magnesium Hydroxide 30 ml 11/24/19 02:09 Milk Of Magnesia 30 Ml Oral.Susp PO DAILY PRN Constipation Omeprazole 20 mg 11/25/19 06:30 11/27/19 06:38 Omeprazole 20 Mg Capsule.Dr PO 20 mg DAILY@0630 ANDREAS Administration Trazodone HCl 50 mg 11/24/19 02:09 Trazodone Hcl 50 Mg Tablet PO BEDTIME PRN Insomnia Zolpidem Tartrate 10 mg 11/23/19 22:35 11/27/19 22:14 Zolpidem Tartrate 5 Mg Tablet PO 10 mg BEDTIME PRN Administration Sleep Allergies Allergies Allergy/AdvReac Type Severity Reaction Status Date / Time sulfamethoxazole Allergy Nausea and Verified 11/16/19 14:07 [From Bactrim] Vomiting trimethoprim [From Bactrim] Allergy Nausea and Verified 11/16/19 14:07 Vomiting Assessment & Plan Assessment & Plan (1) Major depression, recurrent, chronic: Status: Acute Code(s): F33.9 - Major depressive disorder, recurrent, unspecified (2) Intermittent explosive disorder: Status: Acute Code(s): F63.81 - Intermittent explosive disorder (3) Opioid use disorder: Status: Acute Code(s): F11.99 - Opioid use, unspecified with unspecified opioid-induced disorder (4) Cocaine use disorder: Status: Acute Code(s): F14.10 - Cocaine abuse, uncomplicated Assessment and Plan: continue Prozac alprazolam referral to [facility] Greater than 50% of the session was spent on counseling and/or coordination of care
[2019-11-28] MEDS: hydrOXYzine HCL 25 MG TABLET PO (01:21)
[2019-11-28] MEDS: Omeprazole 20 MG CAPSULE.DR PO (06:37)
[2019-11-28 06:40] VITALS: BP 113/68; PULSE 62; RESP 18; TEMP 36.6
[2019-11-28 08:59] VITALS: BP 113/68; PULSE 62
[2019-11-28] MEDS: ALPRAZolam 0.5 MG TABLET PO ×2 (08:59→22:14)
[2019-11-28] MEDS: lisinopriL 20 MG TABLET PO (08:59)
[2019-11-28] MEDS: Buprenorphine/Naloxone 8/2 mg FILM 1 FILM SUBLINGUAL ×2 (08:59→22:14)
[2019-11-28] MEDS: FLUoxetine HCl 20 MG CAPSULE 60 MG PO (08:59)
[2019-11-28 18:00] VITALS: BP 133/74; PULSE 81; TEMP 35.9
--- NOTE | 2019-11-28 22:08 | HO.PSYCHPN ---
Subjective Subjective Reason For Visit: suicidal ideation Interim History: Patient doing ok motivated future focused anxious Mental Status Exam Mental Status Exam Narrative: denies active SI or HI in this setting this continues to be true Patient Appearance: Well Grooomed Patient Orientation: Person, Place, Time and Situation Level of Consciousness: Awake Patient Behavior: Appropriate and Isolative Mood Description: Depressed and Apprehensive Affect Description: Depressed and Flat Memory Description: Intact Diagnostics Vital Signs (24Hr): Vital Signs - 24 hr 11/28/19 06:40 11/28/19 08:59 11/28/19 18:00 Temperature 97.8 F 96.6 F L Pulse Rate 62 62 81 Respiratory Rate 18 Blood Pressure 113/68 113/68 133/74 Body Mass Index 27.3 Labs Results: 11/25/19 07:16 11/25/19 07:16 Medications Medications Current Medications Generic Name Dose Route Start Last Admin Trade Name Freq PRN Reason Stop Dose Admin Acetaminophen 650 mg 11/24/19 02:09 11/27/19 22:13 Acetaminophen 325 Mg Tablet PO 650 mg Q6H PRN Administration Headache/Pain Mild Scale (1-3) Al Hydroxide/Mg Hydroxide 30 ml 11/24/19 02:09 Magnesium Hydrox/Alum Hydrox 30 Ml Oral.Susp PO Q6H PRN Heartburn/Nausea Alprazolam 0.5 mg 11/24/19 09:00 11/28/19 08:59 Alprazolam 0.5 Mg Tablet PO 0.5 mg BID ANDREAS Administration Bisacodyl 5 mg 11/23/19 22:15 Bisacodyl 5 Mg Tablet.Dr PO .COMPLEX ANDREAS Buprenorphine/Naloxone 1 film 11/24/19 09:00 11/28/19 08:59 Buprenorphine/Naloxone 8/2 Mg Film SUBLINGUAL 1 film BID ANDREAS Administration Fluoxetine HCl 60 mg 11/25/19 09:00 11/28/19 08:59 Fluoxetine Hcl 20 Mg Capsule PO 60 mg DAILY ANDREAS Administration Hydroxyzine HCl 25 mg 11/24/19 02:09 11/28/19 01:21 Hydroxyzine Hcl 25 Mg Tablet PO 25 mg BEDTIME PRN Administration Anxiety Lisinopril 20 mg 11/25/19 09:00 11/28/19 08:59 Lisinopril 20 Mg Tablet PO 20 mg DAILY ANDREAS Administration Protocol Magnesium Hydroxide 30 ml 11/24/19 02:09 Milk Of Magnesia 30 Ml Oral.Susp PO DAILY PRN Constipation Omeprazole 20 mg 11/25/19 06:30 11/28/19 06:37 Omeprazole 20 Mg Capsule.Dr PO 20 mg DAILY@0630 ANDREAS Administration Trazodone HCl 50 mg 11/24/19 02:09 Trazodone Hcl 50 Mg Tablet PO BEDTIME PRN Insomnia Zolpidem Tartrate 10 mg 11/23/19 22:35 11/27/19 22:14 Zolpidem Tartrate 5 Mg Tablet PO 10 mg BEDTIME PRN Administration Sleep Allergies Allergies Allergy/AdvReac Type Severity Reaction Status Date / Time sulfamethoxazole Allergy Nausea and Verified 11/16/19 14:07 [From Bactrim] Vomiting trimethoprim [From Bactrim] Allergy Nausea and Verified 11/16/19 14:07 Vomiting Assessment & Plan Assessment & Plan (1) Major depression, recurrent, chronic: Status: Acute Code(s): F33.9 - Major depressive disorder, recurrent, unspecified (2) Intermittent explosive disorder: Status: Acute Code(s): F63.81 - Intermittent explosive disorder (3) Opioid use disorder: Status: Acute Code(s): F11.99 - Opioid use, unspecified with unspecified opioid-induced disorder (4) Cocaine use disorder: Status: Acute Code(s): F14.10 - Cocaine abuse, uncomplicated Assessment and Plan: continue Prozac alprazolam referral to [facility] Greater than 50% of the session was spent on counseling and/or coordination of care Patient educated on: medication risk/benefits and substance abuse Informed Consent: understands Reason for contiued inpatient stay Substantial Risk for: harm to self and harm to others
[2019-11-28] MEDS: Zolpidem Tartrate 5 MG TABLET 10 MG PO (22:14)
[2019-11-28] MEDS: Milk of Magnesia 30 ML ORAL.SUSP PO (22:24)
[2019-11-28] MEDS: Acetaminophen 325 MG TABLET 650 MG PO (22:24)
[2019-11-29] MEDS: hydrOXYzine HCL 25 MG TABLET PO ×2 (02:08→22:27)
[2019-11-29 06:15] VITALS: BP 110/67; PULSE 65; RESP 18; TEMP 35.9
[2019-11-29] MEDS: Omeprazole 20 MG CAPSULE.DR PO (06:36)
[2019-11-29 07:00] VITALS: BMI 28.0
[2019-11-29] MEDS: FLUoxetine HCl 20 MG CAPSULE 60 MG PO (08:00)
[2019-11-29] MEDS: Buprenorphine/Naloxone 8/2 mg FILM 1 FILM SUBLINGUAL ×2 (08:33→22:28)
[2019-11-29 08:34] VITALS: BP 110/67; PULSE 65
[2019-11-29] MEDS: lisinopriL 20 MG TABLET PO (08:34)
[2019-11-29] MEDS: ALPRAZolam 0.5 MG TABLET PO ×2 (08:35→22:27)
[2019-11-29 18:00] VITALS: BP 125/83; PULSE 73; TEMP 36.5
[2019-11-29] MEDS: Zolpidem Tartrate 5 MG TABLET 10 MG PO (22:27)
[2019-11-30 06:22] VITALS: BP 111/65; PULSE 70; RESP 16; TEMP 36; O2SAT 96
[2019-11-30] MEDS: Omeprazole 20 MG CAPSULE.DR PO (06:54)
[2019-11-30] MEDS: FLUoxetine HCl 20 MG CAPSULE 60 MG PO (09:53)
[2019-11-30] MEDS: ALPRAZolam 0.5 MG TABLET PO (09:53)
[2019-11-30 09:54] VITALS: BP 111/65; PULSE 70
[2019-11-30] MEDS: lisinopriL 20 MG TABLET PO (09:54)
[2019-11-30] MEDS: Buprenorphine/Naloxone 8/2 mg FILM 1 FILM SUBLINGUAL (09:54)
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
[2019-11-30] MEDS: Acetaminophen 325 MG TABLET 650 MG PO (12:52)
== END 2019-11-30 13:15 | disposition home or self-care (01) | DRG 751 ==
LOC: HO.ED 11-24 00:48 → HO.PM5 11-24 01:09
PROVIDERS: Physician Assistant; Admitting Provider Psychiatry & Neurology Psychiatry; Emergency Provider Emergency Medicine; Visit Provider Psychiatry & Neurology Psychiatry
DX: F33.9 Major depressive disorder, recurrent, unspecified (principal); R45.851 Suicidal ideations; F11.20 Opioid dependence, uncomplicated; F63.81 Intermittent explosive disorder; K21.9 Gastro-esophageal reflux disease without esophagitis; J45.909 Unspecified asthma, uncomplicated; F14.10 Cocaine abuse, uncomplicated; Z20.828 Contact with and (suspected) exposure to other viral communicable diseases; Z88.2 Allergy status to sulfonamides; Z79.51 Long term (current) use of inhaled steroids; Z79.899 Other long term (current) drug therapy
CPT/HCPCS: 36415; 71045; 80053; 80061; 80307; 80320; 84443; 85025; 87635; 93005; 99223; 99232; 99239; 99285; G0480; J0574

== ENCOUNTER → 2019-12-07 11:43 | Outpatient (BNVA) | payer MEDICAID, SELFPAY | PROVIDERS: Visit Provider Internal Medicine | DX: F19.10 Other psychoactive substance abuse, uncomplicated (principal) | CPT/HCPCS: 80305; 99211 ==

== ENCOUNTER → 2019-12-18 14:56 | Outpatient (BNVA) | payer MEDICAID, SELFPAY | PROVIDERS: Visit Provider Internal Medicine | DX: F11.20 Opioid dependence, uncomplicated (principal); F33.9 Major depressive disorder, recurrent, unspecified; F14.10 Cocaine abuse, uncomplicated | CPT/HCPCS: 80305; 99212 ==

== ENCOUNTER → 2020-01-21 14:40 | Outpatient (BNVA) | payer MEDICAID, SELFPAY | PROVIDERS: Visit Provider Internal Medicine | DX: F11.99 Opioid use, unspecified with unspecified opioid-induced disorder (principal) | CPT/HCPCS: 80305 ==

== ENCOUNTER → 2020-02-18 15:05 | Outpatient (BNVA) | payer OTHER, SELFPAY | PROVIDERS: Visit Provider Internal Medicine | DX: Z76.89 Persons encountering health services in other specified circumstances (principal) ==

== ENCOUNTER → 2020-03-17 14:04 | Outpatient (BNVA) | payer OTHER, SELFPAY | PROVIDERS: Visit Provider Internal Medicine | DX: F11.99 Opioid use, unspecified with unspecified opioid-induced disorder (principal) ==

== ENCOUNTER 2020-03-19 14:05 | Inpatient (IN) | payer OTHER, SELFPAY ==
--- NOTE | 2020-03-19 14:48 | ED.PSYCH ---
HPI - Psych General Chief Complaint: Psychiatric Symptoms Stated Complaint: SI Time Seen by Provider: 03/19/20 14:33 History of Present Illness HPI Narrative: Patient complains of feeling stressed depressed anxious and having suicidal thoughts after splitting up with his girlfriend, he has had thoughts of hanging himself or shooting himself He has not takenany action to hurt himself and he denies any drug or alcohol use Related Data Home Medications Medication Instructions Recorded Confirmed fluoxetine 20 mg capsule 60 mg PO DAILY 11/16/19 03/19/20 melatonin 5 mg capsule 5 mg PO BEDTIME cap 11/16/19 03/19/20 valacyclovir 1 gram tablet 1,000 mg PO BID 11/16/19 03/17/20 Flonase 2 spray NOSTRIL-R DAILY 11/24/19 03/17/20 Flovent Diskus 110 mcg INHALATION BID 11/24/19 03/19/20 Vitamin D2 50,000 units PO QWEEK 11/24/19 03/19/20 terazosin 2 mg PO BEDTIME 11/24/19 03/19/20 alprazolam 1 mg PO BID 03/19/20 03/19/20 buprenorphine-naloxone [Suboxone] 1 film SUBLINGUAL TID 03/19/20 03/19/20 docusate sodium 100 mg PO BID PRN 03/19/20 03/19/20 lisinopril 30 mg PO DAILY 03/19/20 03/19/20 sennosides [Senna Lax] 17.2 mg PO DAILY 03/19/20 03/19/20 Previous Rx's Medication Instructions Recorded bisacodyl 5 mg tablet,delayed 5 mg PO .COMPLEX #4 tab 11/21/19 release buprenorphine-naloxone [Suboxone] 2 film SUBLINGUAL QAM 7 Days #14 ea 11/30/19 hydroxyzine HCl 25 mg PO BEDTIME 30 Days #30 tab 11/30/19 naloxone [Narcan] 4 mg INTRANASAL Q2M PRN #2 ea 11/30/19 omeprazole 20 mg PO DAILY #30 cap 11/30/19 zolpidem 10 mg PO BEDTIME 30 Days #30 tab 11/30/19 zolpidem [Ambien] 10 mg PO BEDTIME 14 Days #14 tab 11/30/19 buprenorphine 8 mg-naloxone 2 mg 3 film SUBLINGUAL DAILY 30 Days 01/21/20 sublingual film #90 ea buprenorphine 8 mg-naloxone 2 mg 3 film SUBLINGUAL DAILY 30 Days 03/17/20 sublingual film #90 ea Allergies Allergy/AdvReac Type Severity Reaction Status Date / Time sulfamethoxazole Allergy Nausea and Verified 02/18/20 15:06 [From Bactrim] Vomiting trimethoprim [From Bactrim] Allergy Nausea and Verified 02/18/20 15:06 Vomiting Review of Systems Review of Systems: Depression and anxiety are positive Negatives are he denies any trauma he denies any illness he denies any fever no chills no dizziness no weakness no headache no chest pain no shortness of breath no cough no upper respiratory symptoms no abdominal pain no nausea no vomiting PMFSH Past Medical History Source: nursing notes reviewed Medical History Acid reflux Asthma Cocaine use disorder Dysuria Encounter for screening colonoscopy Intermittent explosive disorder Opioid use disorder Surgical History History of colonoscopy Hx of endoscopy Family History Family History Father History of stomach cancer Mother Hx of diabetes mellitus Social History Social History Household Members: None and Other Housing: Homeless Alcohol intake: never Smoking Status: Unknown if ever smoked Second Hand Smoke Exposure: Yes Use of substances other than those prescribed or required for medical reasons: Unknown Substance Use Type: Crack/Cocaine, Former Substance User, Heroin, Marijuana and Opiates Last Used Substance: Unknown Advance Directives: No Advance Directives Information Provided: No service: No Sexual orientation: Straight/Heterosexual Physical Exam Vital Signs: Vital Signs: Last Vital Signs Temp 98.0 F 03/19/20 16:39 Pulse 68 03/19/20 16:39 Resp 18 03/19/20 16:39 BP 130/79 03/19/20 16:39 Pulse Ox 68 L 03/19/20 16:39 Body Mass Index 27.8 Patient is A&O x3, no acute distress Head is normocephalic atraumatic The pharynx is clear Neck is supple Chest is clear to auscultation bilaterally Heart rate and rhythm regular no murmur Abdomen soft nontender Extremities for range of motion x4 Skin no rash Neuro no focal deficits Course Course Course Narrative: Patient was seen by in and they recommended admission and a bed search is underway Discharge Plan Discharge Prescriptions: No Action sennosides [Senna Lax] 8.6 mg tablet 17.2 mg PO DAILY RF: 0 docusate sodium 100 mg Tablet 100 mg PO BID PRN (Reason: Constipation) RF: 0 lisinopril 20 mg tablet 30 mg PO DAILY RF: 0 alprazolam 0.5 mg tablet 1 mg PO BID RF: 0 buprenorphine-naloxone [Suboxone] 8-2 mg film 1 film sublingual TID RF: 0 Flonase 2 spray NOSTRIL-R DAILY RF: 0 Flovent Diskus 110 mcg 110 mcg inhalation BID RF: 0 Vitamin D2 50,000 units capsule 50,000 units PO QWEEK RF: 0 terazosin 2 mg 2 mg PO BEDTIME RF: 0 hydroxyzine HCl 25 mg Tablet 25 mg PO BEDTIME 30 Days Qty: 30 RF: 0 zolpidem 10 mg tablet 10 mg PO BEDTIME 30 Days Qty: 30 RF: 0 Narcan 4 mg/actuation spray,non-aerosol 4 mg intranasal Q2M PRN (Reason: opioid overdose) Qty: 2 RF: 0 omeprazole 20 mg capsule,delayed release(DR/EC) 20 mg PO DAILY Qty: 30 RF: 0 zolpidem [Ambien] 10 mg Tablet 10 mg PO BEDTIME 14 Days Qty: 14 RF: 1 buprenorphine-naloxone [Suboxone] 8-2 mg film 2 film sublingual QAM 7 Days Qty: 14 RF: 0 valacyclovir [Valtrex] 1 gram tablet 1,000 mg PO BID RF: 0 melatonin 5 mg capsule 5 mg PO BEDTIME RF: 0 fluoxetine [Prozac] 20 mg capsule 60 mg PO DAILY RF: 0 bisacodyl [Dulcolax (bisacodyl)] 5 mg tablet,delayed release (DR/EC) 5 mg PO .COMPLEX Qty: 4 RF: 0 buprenorphine-naloxone [Suboxone] 8-2 mg film 3 film sublingual DAILY 30 Days Qty: 90 RF: 0 buprenorphine-naloxone [Suboxone] 8-2 mg film 3 film sublingual DAILY 30 Days Qty: 90 RF: 0
[2020-03-19 15:14] VITALS: BP 130/79; PULSE 68; RESP 18; TEMP 36.7; O2SAT 96; BMI 27.8
[2020-03-19 15:29] LABS: MANUAL DIFF FLAG NO
[2020-03-19 15:31] LABS: Basophils Percent Auto 0.5 % (0-2); Eosinophils Absolute Auto 0.3 X10*3/uL (0.0-0.4); Eosinophils Percent Auto 5.2 % (0-4); Hemoglobin 12.6 g/dl (14.0-18.0); Imm Gran Abs Auto 0.01 X10*3/uL (0.00-0.03); Imm Gran Pct Auto 0.2 % (0.0-0.4); Lymphocytes Absolute Auto 2.4 X10*3/uL (1.2-4.9); Lymphocytes Percent Auto 42.3 % (20-40); Mean Corpuscular HGB Conc 34.1 g/dl (31.0-36.0); Mean Corpuscular Hemoglobin 31.4 pg (27.0-33.0); Mean Corpuscular Volume 92.3 fL (80-98); Mean Platelet Volume 9.4 fL (9.4-12.4); Monocytes Absolute Auto 0.5 X10*3/uL (0.1-1.2); Neutrophils Absolute Auto 2.5 X10*3/uL (2.0-8.3); Neutrophils Percent Auto 43.8 % (45-73); Platelet Count 195 X10*3/uL (160-400); Red Blood Count 4.01 X10*6/uL (4.60-5.80); White Blood Count 5.6 X10*3/uL (4.8-10.8)
[2020-03-19 15:55] LABS: Ethanol < 10 mg/dL
[2020-03-19 15:56] LABS: Anion Gap 11 (12-20); Blood Urea Nitrogen 13 mg/dL (9-16); Calcium 8.7 mg/dL (8.4-10.2); Carbon Dioxide 29 mmol/L (22-29); Chloride 100 mmol/L (96-108); Creatinine Clr Calc Pharmacy 74.1; Estimated Glomerular Filt Rate > 60; Glucose Random 107 mg/dL (60-115); Potassium 4.3 mmol/L (3.3-5.1); Sodium 136 mmol/L (135-145)
[2020-03-19 16:13] LABS: Amphetamine Screen Urine Not Detected (Not Detect); Barbiturates, Urine Not Detected (Not Detect); Benzodiazepines Screen Urine POSITIVE (Not Detect); Cannabinoid Screen Urine Not Detected (Not Detect); Cocaine Screen Urine Not Detected (Not Detect); Opiate Screen Urine Not Detected (Not Detect); Phencyclidine Screen Urine Not Detected (Not Detect)
[2020-03-19 16:39] VITALS: BP 130/79; PULSE 68; RESP 18; TEMP 36.7; O2SAT 68
--- NOTE | 2020-03-19 16:45 | PC.NURSE ---
NATALIYA faxed and called
--- NOTE | 2020-03-19 17:44 | PC.NURSE ---
Pt asleep at current, no signs of distress, respirations even and unlabored.
--- NOTE | 2020-03-19 19:51 | PC.NURSE ---
Patient in bed resting, care team evaluated the patient, disposition is section 12 in-patient bed search, recovery spoke with patient, will continue to monitor.
[2020-03-19 21:03] LABS: COVID-19 Test Negative (Negative); IDNOW Serial# 9DD0AD1C
[2020-03-19] MEDS: ALPRAZolam 0.5 MG TABLET 1 MG PO (21:04)
[2020-03-19] MEDS: Zolpidem Tartrate 5 MG TABLET 10 MG PO (21:04)
[2020-03-19 21:08] VITALS: BP 118/70; PULSE 66
[2020-03-19 21:51] VITALS: BP 118/70; PULSE 66; RESP 18; TEMP 36.6; O2SAT 97
--- NOTE | 2020-03-19 22:33 | PC.NURSE ---
Med rec completed after contacting [facility] pharmacy on [facility]. PT refused some of his night time meds, stating that he only takes Ambien and Xanax at night.
[2020-03-20] VITALS (7 sets, daily range): BP systolic 104–131; BP diastolic 62–81; PULSE 58–85; RESP 15–18; TEMP 36.1–36.6; O2SAT 95–96
--- NOTE | 2020-03-20 | ECG_ITS ---
Test Reason : CLEARANCE Blood Pressure : / mmHG Vent. Rate : 057 BPM Atrial Rate : 057 BPM P-R Int : 146 ms QRS Dur : 108 ms QT Int : 438 ms P-R-T Axes : 065 -15 058 degrees QTc Int : 426 ms Sinus bradycardia Otherwise normal ECG When compared with ECG of 23-NOV-2019 17:22, No significant change was found Referred By: Lexa Cruz Electronically Signed By:YLN ALLAN MD
--- NOTE | 2020-03-20 06:55 | PC.NURSE ---
Report received. PT currently sleeping, respirations even and unlabored, in no apparent distress. Pt is inpatient bedsearch.
[2020-03-20] MEDS: Omeprazole 20 MG CAPSULE.DR PO (09:29)
[2020-03-20] MEDS: ALPRAZolam 0.5 MG TABLET 1 MG PO ×2 (09:31→19:59)
[2020-03-20] MEDS: FLUoxetine HCl 20 MG CAPSULE 60 MG PO (09:31)
[2020-03-20] MEDS: Buprenorphine/Naloxone 8/2 mg FILM 1 FILM SUBLINGUAL ×3 (09:31→20:31)
--- NOTE | 2020-03-20 13:46 | MHC.CARE ---
t/w referred pt to and he was accepted at 1300 to be assigned to room 512 bed 2 Gabriella Doe as provider.t/w placed a call to [employer] to obtain auth from [place] [id number] 5 days 03/20-03/24 with review on Tuesday. Pt will be able to be admitted to on second shift per .
[2020-03-20] MEDS: Docusate Sodium 100 MG CAPSULE PO (16:00)
--- NOTE | 2020-03-20 19:26 | PC.ADMIT ---
this is one of several M5 admissions for this 55 year old male. keyonna cv. dx mdd, opiate, cocaine in remission. does report buying suboxone and xanax ''off the streets'' prior to admission. denied use of opiates, cocaine or alcohol. reports recent breakup in relationship. reports intrusive thoughts to kill self but told provider and family. cooperative. no change in medical status since previous admission. has providers, community supports and works with a sober career coach. oriented to unit. safety tool completed. see collateral and informative CARE team assessment.
[2020-03-20] MEDS: Zolpidem Tartrate 5 MG TABLET 10 MG PO (20:00)
[2020-03-20] MEDS: Melatonin 3 MG TABLET 6 MG PO (20:00)
[2020-03-20] MEDS: Doxazosin Mesylate 2 MG TABLET PO (20:01)
[2020-03-21 06:20] VITALS: BP 110/64; PULSE 87; RESP 18; TEMP 37.1; O2SAT 94
[2020-03-21 08:30] LABS: Alanine Aminotransferase 10 U/L (0-40); Albumin Level 4.1 g/dL (3.5-5.0); Alkaline Phosphatase 85 U/L (39-117); Anion Gap 11 (12-20); Aspartate Amino Transferase 13 U/L (5-37); Bilirubin Total 0.4 mg/dL (0.0-1.0); Blood Urea Nitrogen 18 mg/dL (9-16); Calcium 9.4 mg/dL (8.4-10.2); Carbon Dioxide 32 mmol/L (22-29); Chloride 101 mmol/L (96-108); Cholesterol 177 mg/dL; Creatinine Clr Calc Pharmacy 80.6; Estimated Glomerular Filt Rate > 60; Glucose Fasting 107 mg/dL (60-99); HDL Cholesterol 35 mg/dL; LDL Cholesterol Calculated 100 mg/dl; Potassium 4.6 mmol/L (3.3-5.1); Sodium 139 mmol/L (135-145); Total Protein 7.6 g/dL (6.5-8.0); Triglycerides 210 mg/dL
[2020-03-21] MEDS: Buprenorphine/Naloxone 8/2 mg FILM 1 FILM SUBLINGUAL ×3 (08:32→20:12)
[2020-03-21] MEDS: Omeprazole 20 MG CAPSULE.DR PO (08:32)
[2020-03-21] MEDS: ALPRAZolam 0.5 MG TABLET 1 MG PO ×2 (08:32→20:06)
[2020-03-21] MEDS: FLUoxetine HCl 20 MG CAPSULE 60 MG PO (08:32)
[2020-03-21 08:45] LABS: TSH reflex Free T4 1.08 uIU/mL (0.32-4.0)
[2020-03-21 08:55] LABS: Vitamin B12 319 pg/mL (200-900)
[2020-03-21 09:43] LABS: Reflex LDLD? No
--- NOTE | 2020-03-21 11:02 | MHC.RECOVSUP ---
? Reason for consult:Continuity of care o Current location: 512-2 o Identified substance use concern:ETOH - Support ? Intervention: o MAT started or to be started o Community resources provided o Harm reduction discussion ? Plan: o Referral to CCC o Patient to follow up with HF after discharge ? Additional information:Patient was agreeable to meet where we discussed hx of use and his most recent relapse. Pt is homeless and seeking extermination supervisor recovery. pt given community resources and spoken to about harm reduction. Pt was already on mat from the [facility]
[2020-03-21 13:00] VITALS: BP 99/58; PULSE 75; TEMP 36
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
[2020-03-21 18:00] VITALS: BP 128/78; PULSE 74; TEMP 36.6
[2020-03-21 20:07] VITALS: BP 132/79; PULSE 74
[2020-03-21] MEDS: Melatonin 3 MG TABLET 6 MG PO (20:07)
[2020-03-21] MEDS: Doxazosin Mesylate 2 MG TABLET PO (20:07)
[2020-03-21] MEDS: Zolpidem Tartrate 5 MG TABLET 10 MG PO (20:11)
[2020-03-21] MEDS: Fluticasone Propionate 100 MCG BLST.W.DEV 1 PUFF INHALE (20:16)
[2020-03-22 06:48] VITALS: BP 111/67; PULSE 78; RESP 16; TEMP 36.3; O2SAT 93
[2020-03-22 08:39] VITALS: BP 111/67; PULSE 78
[2020-03-22] MEDS: FLUoxetine HCl 20 MG CAPSULE 60 MG PO (08:39)
[2020-03-22] MEDS: Fluticasone Propionate 100 MCG BLST.W.DEV 1 PUFF INHALE (08:39)
[2020-03-22] MEDS: Omeprazole 20 MG CAPSULE.DR PO (08:39)
[2020-03-22] MEDS: ALPRAZolam 0.5 MG TABLET 1 MG PO ×2 (08:39→20:45)
[2020-03-22] MEDS: Buprenorphine/Naloxone 8/2 mg FILM 1 FILM SUBLINGUAL ×3 (08:40→20:44)
[2020-03-22] MEDS: Docusate Sodium 100 MG CAPSULE PO (08:45)
[2020-03-22 13:00] VITALS: BP 110/65; PULSE 80; RESP 18; TEMP 36.1; O2SAT 94
[2020-03-22 18:00] VITALS: BP 108/61; PULSE 83; TEMP 36.9
[2020-03-22 20:44] VITALS: BP 133/74; PULSE 66
[2020-03-22] MEDS: Doxazosin Mesylate 2 MG TABLET PO (20:44)
[2020-03-22] MEDS: Melatonin 3 MG TABLET 6 MG PO (20:44)
[2020-03-22] MEDS: Zolpidem Tartrate 5 MG TABLET 10 MG PO (20:45)
--- NOTE | 2020-03-22 22:20 | HO.PSYCHPN ---
Subjective Subjective Date of Service: 03/22/20 Reason For Visit: Depression Substance abuse Interim History: Pt seen, chart reviewed, case discussed vitals reviewed Pt reports he's good. He says depression and SI fully resolved and he feels ready for discharge. Pt says he's sleeping well. He has a bed reserved at [facility] and says he is currently taking up a psych bed on unit for someone who needs it more than he does. Pt shared he was a little anxious about pending roommate since cleanliness is important to him and he wants to make sure roommate has similar values. He asks when he can be discharged and accepts that he'll need to discuss this with primary team. Medication Compliance: Yes Side effects from medications: No Attending Groups: Intermittent Mental Status Exam Mental Status Exam Patient Appearance: Well Grooomed (multiple tatoos on arms, body) and Appropriate Patient Orientation: Person, Place, Time and Situation Level of Consciousness: Appropriate Patient Behavior: Appropriate and Cooperative Mood Description: Appropriate Affect Description: Appropriate Ability to Follow Directions: Good Speech Pattern: Clear and Appropriate Hallucinations: None Delusions: Not Present Thought Process: Intact Thought Content: positive for Intact and positive for Goal Oriented Judgement: Fair Diagnostics Vital Signs (24Hr): Vital Signs - 24 hr 03/22/20 06:48 03/22/20 08:39 03/22/20 13:00 Temperature 97.3 F 96.9 F Pulse Rate 78 78 80 Respiratory Rate 16 18 Blood Pressure 111/67 111/67 110/65 Pulse Oximetry 93 94 03/22/20 18:00 03/22/20 20:44 Temperature 98.4 F Pulse Rate 83 66 Respiratory Rate Blood Pressure 108/61 133/74 Pulse Oximetry Body Mass Index 27.8 Labs Results: 03/19/20 15:13 03/21/20 07:42 Labs: Laboratory Results - last 48 hr 03/21/20 03/21/20 07:42 07:42 Sodium 139 Potassium 4.6 Chloride 101 Carbon Dioxide 32 H Anion Gap 11 L BUN 18 H Creatinine 1.03 Estim Creat Clear Calc 80.6 Estimated GFR > 60 Fasting Glucose 107 H Calcium 9.4 D Total Bilirubin 0.4 AST 13 ALT 10 Alkaline Phosphatase 85 Total Protein 7.6 Albumin 4.1 Triglycerides 210 Cholesterol 177 LDL Cholesterol, Calc 100 HDL Cholesterol 35 D Vitamin B12 319 Folate 11.0 TSH 1.08 Medications Medications Current Medications Generic Name Dose Route Start Last Admin Trade Name Yawq PRN Reason Stop Dose Admin Acetaminophen 650 mg 03/20/20 17:13 Acetaminophen 325 Mg Tablet PO Q6H PRN Headache/Pain Mild Scale (1-3) Al Hydroxide/Mg Hydroxide 30 ml 03/20/20 17:13 Magnesium Hydrox/Alum Hydrox 30 Ml Oral.Susp PO Q6H PRN Heartburn/Nausea Alprazolam 1 mg 03/19/20 21:00 03/22/20 20:45 Alprazolam 0.5 Mg Tablet PO 1 mg BID ANDREAS Administration Buprenorphine/Naloxone 1 film 03/19/20 21:00 03/22/20 20:44 Buprenorphine/Naloxone 8/2 Mg Film SUBLINGUAL 1 film TID ANDREAS Administration Docusate Sodium 100 mg 03/19/20 20:48 03/22/20 08:45 Docusate Sodium 100 Mg Capsule PO 100 mg BID PRN Administration Constipation Doxazosin Mesylate 2 mg 03/19/20 21:00 03/22/20 20:44 Doxazosin Mesylate 2 Mg Tablet PO 2 mg BEDTIME ANDREAS Administration Ergocalciferol 1,250 mcg 03/23/20 10:00 Ergocalciferol (Vitamin D2) 1,250 Mcg Capsule PO Vargas@1000 [facility] Fluoxetine HCl 60 mg 03/20/20 09:00 03/22/20 08:39 Fluoxetine Hcl 20 Mg Capsule PO 60 mg DAILY ANDREAS Administration Fluticasone Propionate 1 puff 03/20/20 08:00 03/22/20 20:52 Fluticasone Propionate 100 Mcg Blst.W.Dev INHALE Not Given RBID [facility] Hydroxyzine HCl 25 mg 03/20/20 17:13 Hydroxyzine Hcl 25 Mg Tablet PO BEDTIME PRN Anxiety Lisinopril 30 mg 03/20/20 09:00 03/22/20 08:39 Lisinopril 20 Mg Tablet PO 30 mg DAILY [facility] Administration Protocol Magnesium Hydroxide 30 ml 03/20/20 17:13 Milk Of Magnesia 30 Ml Oral.Susp PO DAILY PRN Constipation Melatonin 6 mg 03/19/20 21:00 03/22/20 20:44 Melatonin 3 Mg Tablet PO 6 mg BEDTIME ANDREAS Administration Omeprazole 20 mg 03/20/20 09:00 03/22/20 08:39 Omeprazole 20 Mg Capsule.Dr PO 20 mg DAILY ANDREAS Administration Trazodone HCl 50 mg 03/20/20 17:13 Trazodone Hcl 50 Mg Tablet PO BEDTIME PRN Insomnia Zolpidem Tartrate 10 mg 03/19/20 21:00 03/22/20 20:45 Zolpidem Tartrate 5 Mg Tablet PO 10 mg BEDTIME ANDREAS Administration Allergies Allergies Allergy/AdvReac Type Severity Reaction Status Date / Time sulfamethoxazole Allergy Nausea and Verified 02/18/20 15:06 [From Bactrim] Vomiting trimethoprim [From Bactrim] Allergy Nausea and Verified 02/18/20 15:06 Vomiting Assessment & Plan Impression: pt report depression and SI fully resolved and he feels ready for discharge staff reports appropriate behavior dx: mdd cocaine use disorder intermittent explosive disorder plan: continue w current tx plan discuss dispo with primary team Greater than 50% of the session was spent on counseling and/or coordination of care Reason for contiued inpatient stay Substantial Risk for: med/psych decompensation
[2020-03-23 06:25] VITALS: BP 111/65; PULSE 75; RESP 16; TEMP 36.8; O2SAT 95
[2020-03-23] MEDS: ALPRAZolam 0.5 MG TABLET 1 MG PO ×2 (08:59→20:09)
[2020-03-23 09:00] VITALS: BP 120/68; PULSE 83
[2020-03-23] MEDS: FLUoxetine HCl 20 MG CAPSULE 60 MG PO (09:00)
[2020-03-23] MEDS: Omeprazole 20 MG CAPSULE.DR PO (09:01)
[2020-03-23] MEDS: Buprenorphine/Naloxone 8/2 mg FILM 1 FILM SUBLINGUAL ×3 (09:03→20:10)
[2020-03-23 09:50] VITALS: BP 120/68; PULSE 83; TEMP 36.3
[2020-03-23] MEDS: Fluticasone Propionate 100 MCG BLST.W.DEV 1 PUFF INHALE (10:04)
[2020-03-23] MEDS: Ergocalciferol (Vitamin D2) 1,250 MCG CAPSULE 1250 MCG PO (10:07)
--- NOTE | 2020-03-23 10:56 | P.PNPSI_ITS ---
Subjective Subjective Date of Service: 03/23/20 Reason For Visit: Depression Substance abuse Interim History: Pt seen, chart reviewed, case discussed vitals reviewed: wnl pt says he's great and reiterates he's ready for discharge. Says he is safe, stable and wants to give psych bed up to someone who needs it as his issues are resolved. Pt says sleeping well. He says his friend is holding on to his clothing for him while pt gets back to longterm. nursing reports pt expressed feeling irritable on unit being around dysregulated peers. Pt remains in good behavioral control. Medication Compliance: Yes Side effects from medications: No Mental Status Exam Mental Status Exam Narrative: Patient Appearance: Well Groomed (multiple tattoos on arms, body) and Appropriate Patient Orientation: Person, Place, Time and Situation Level of Consciousness: Appropriate Patient Behavior: Appropriate and Cooperative Mood Description: Appropriate Affect Description: Appropriate Ability to Follow Directions: Good Speech Pattern: Clear and Appropriate Hallucinations: None Delusions: Not Present Thought Process: Intact Thought Content: positive for Intact and positive for Goal Oriented Judgment.insight: Fair Diagnostics Vital Signs (24Hr): Vital Signs - 24 hr 03/22/20 13:00 03/22/20 18:00 03/22/20 20:44 Temperature 96.9 F 98.4 F Pulse Rate 80 83 66 Respiratory Rate 18 Blood Pressure 110/65 108/61 133/74 Pulse Oximetry 94 03/23/20 06:25 03/23/20 09:00 Temperature 98.2 F Pulse Rate 75 83 Respiratory Rate 16 Blood Pressure 111/65 120/68 Pulse Oximetry 95 Body Mass Index 27.8 Labs Results: 03/19/20 15:13 03/21/20 07:42 Medications Medications Current Medications Generic Name Dose Route Start Last Admin Trade Name Freq PRN Reason Stop Dose Admin Acetaminophen 650 mg 03/20/20 17:13 Acetaminophen 325 Mg Tablet PO Q6H PRN Headache/Pain Mild Scale (1-3) Al Hydroxide/Mg Hydroxide 30 ml 03/20/20 17:13 Magnesium Hydrox/Alum Hydrox 30 Ml Oral.Susp PO Q6H PRN Heartburn/Nausea Alprazolam 1 mg 03/19/20 21:00 03/23/20 08:59 Alprazolam 0.5 Mg Tablet PO 1 mg BID ANDREAS Administration Buprenorphine/Naloxone 1 film 03/19/20 21:00 03/23/20 09:03 Buprenorphine/Naloxone 8/2 Mg Film SUBLINGUAL 1 film TID ANDREAS Administration Docusate Sodium 100 mg 03/19/20 20:48 03/22/20 08:45 Docusate Sodium 100 Mg Capsule PO 100 mg BID PRN Administration Constipation Doxazosin Mesylate 2 mg 03/19/20 21:00 03/22/20 20:44 Doxazosin Mesylate 2 Mg Tablet PO 2 mg BEDTIME ANDREAS Administration Ergocalciferol 1,250 mcg 03/23/20 10:00 03/23/20 10:07 Ergocalciferol (Vitamin D2) 1,250 Mcg Capsule PO 1,250 mcg Vargas@1000 ANDREAS Administration Fluoxetine HCl 60 mg 03/20/20 09:00 03/23/20 09:00 Fluoxetine Hcl 20 Mg Capsule PO 60 mg DAILY ANDREAS Administration Fluticasone Propionate 1 puff 03/20/20 08:00 03/23/20 10:04 Fluticasone Propionate 100 Mcg Blst.W.Dev INHALE 1 puff RBID ANDREAS Administration Hydroxyzine HCl 25 mg 03/20/20 17:13 Hydroxyzine Hcl 25 Mg Tablet PO BEDTIME PRN Anxiety Lisinopril 30 mg 03/20/20 09:00 03/23/20 09:00 Lisinopril 20 Mg Tablet PO 30 mg DAILY ANDREAS Administration Protocol Magnesium Hydroxide 30 ml 03/20/20 17:13 Milk Of Magnesia 30 Ml Oral.Susp PO DAILY PRN Constipation Melatonin 6 mg 03/19/20 21:00 03/22/20 20:44 Melatonin 3 Mg Tablet PO 6 mg BEDTIME ANDREAS Administration Omeprazole 20 mg 03/20/20 09:00 03/23/20 09:01 Omeprazole 20 Mg Capsule.Dr PO 20 mg DAILY ANDREAS Administration Trazodone HCl 50 mg 03/20/20 17:13 Trazodone Hcl 50 Mg Tablet PO BEDTIME PRN Insomnia Zolpidem Tartrate 10 mg 03/19/20 21:00 03/22/20 20:45 Zolpidem Tartrate 5 Mg Tablet PO 10 mg BEDTIME ANDREAS Administration Allergies Allergies Allergy/AdvReac Type Severity Reaction Status Date / Time sulfamethoxazole Allergy Nausea and Verified 02/18/20 15:06 [From Bactrim] Vomiting trimethoprim [From Bactrim] Allergy Nausea and Verified 02/18/20 15:06 Vomiting Assessment & Plan Impression: pt report depression and SI fully resolved and he feels ready for discharge staff reports appropriate behavior dx: mdd cocaine use disorder intermittent explosive disorder plan: continue w current tx plan discuss dispo with primary team Greater than 50% of the session was spent on counseling and/or coordination of care Reason for contiued inpatient stay Substantial Risk for: med/psych decompensation
[2020-03-23] MEDS: Acetaminophen 325 MG TABLET 650 MG PO ×2 (11:24→20:08)
[2020-03-23 18:00] VITALS: BP 142/73; PULSE 72; TEMP 36.6
--- NOTE | 2020-03-23 18:16 | MHC.RECOVSUP ---
Meet with Patient to follow up with an a couple of places where he might be able to go after patient is released...
[2020-03-23 20:09] VITALS: BP 142/73; PULSE 72
[2020-03-23] MEDS: Doxazosin Mesylate 2 MG TABLET PO (20:09)
[2020-03-23] MEDS: Zolpidem Tartrate 5 MG TABLET 10 MG PO (20:10)
[2020-03-23] MEDS: Melatonin 3 MG TABLET 6 MG PO (20:10)
[2020-03-24 08:49] VITALS: BP 142/73; PULSE 72
[2020-03-24] MEDS: Buprenorphine/Naloxone 8/2 mg FILM 1 FILM SUBLINGUAL ×3 (08:49→20:35)
[2020-03-24] MEDS: ALPRAZolam 0.5 MG TABLET 1 MG PO ×2 (08:49→20:36)
[2020-03-24] MEDS: Omeprazole 20 MG CAPSULE.DR PO (08:50)
[2020-03-24] MEDS: FLUoxetine HCl 20 MG CAPSULE 60 MG PO (08:50)
[2020-03-24 13:00] VITALS: BP 115/67; PULSE 86; RESP 16; TEMP 36.6
--- NOTE | 2020-03-24 16:29 | HO.PSYCHPN ---
Subjective Subjective Date of Service: 03/24/20 Reason For Visit: Depression Substance abuse Interim History: Pt seen, chart reviewed, case discussed vitals reviewed: wnl pt says he's good. He reiterates that he's ready for discharge and very much hopes it can be tuesday. He will discuss with team tomorrow. Medication Compliance: Yes Side effects from medications: No Mental Status Exam Mental Status Exam Narrative: Patient Appearance: Well Groomed (multiple tattoos on arms, body) and Appropriate Patient Orientation: Person, Place, Time and Situation Level of Consciousness: Appropriate Patient Behavior: Appropriate and Cooperative Mood Description: Appropriate Affect Description: Appropriate Ability to Follow Directions: Good Speech Pattern: Clear and Appropriate Hallucinations: None Delusions: Not Present Thought Process: Intact Thought Content: positive for Intact and positive for Goal Oriented Judgment.insight: Fair Diagnostics Vital Signs (24Hr): Vital Signs - 24 hr 03/23/20 18:00 03/23/20 20:09 03/24/20 08:49 Temperature 97.9 F Pulse Rate 72 72 72 Respiratory Rate Blood Pressure 142/73 H 142/73 H 142/73 H 03/24/20 13:00 Temperature 97.8 F Pulse Rate 86 Respiratory Rate 16 Blood Pressure 115/67 Body Mass Index 27.8 Labs Results: 03/19/20 15:13 03/21/20 07:42 Medications Medications Current Medications Generic Name Dose Route Start Last Admin Trade Name Freq PRN Reason Stop Dose Admin Acetaminophen 650 mg 03/20/20 17:13 03/23/20 20:08 Acetaminophen 325 Mg Tablet PO 650 mg Q6H PRN Administration Headache/Pain Mild Scale (1-3) Al Hydroxide/Mg Hydroxide 30 ml 03/20/20 17:13 Magnesium Hydrox/Alum Hydrox 30 Ml Oral.Susp PO Q6H PRN Heartburn/Nausea Alprazolam 1 mg 03/19/20 21:00 03/24/20 08:49 Alprazolam 0.5 Mg Tablet PO 1 mg BID ANDREAS Administration Buprenorphine/Naloxone 1 film 03/19/20 21:00 03/24/20 15:13 Buprenorphine/Naloxone 8/2 Mg Film SUBLINGUAL 1 film TID ANDREAS Administration Docusate Sodium 100 mg 03/19/20 20:48 03/22/20 08:45 Docusate Sodium 100 Mg Capsule PO 100 mg BID PRN Administration Constipation Doxazosin Mesylate 2 mg 03/19/20 21:00 03/23/20 20:09 Doxazosin Mesylate 2 Mg Tablet PO 2 mg BEDTIME ANDREAS Administration Ergocalciferol 1,250 mcg 03/23/20 10:00 03/23/20 10:07 Ergocalciferol (Vitamin D2) 1,250 Mcg Capsule PO 1,250 mcg Vargas@1000 ANDREAS Administration Fluoxetine HCl 60 mg 03/20/20 09:00 03/24/20 08:50 Fluoxetine Hcl 20 Mg Capsule PO 60 mg DAILY ANDREAS Administration Fluticasone Propionate 1 puff 03/20/20 08:00 03/24/20 10:34 Fluticasone Propionate 100 Mcg Blst.W.Dev INHALE Not Given RBID [facility] Hydroxyzine HCl 25 mg 03/20/20 17:13 Hydroxyzine Hcl 25 Mg Tablet PO BEDTIME PRN Anxiety Lisinopril 30 mg 03/20/20 09:00 03/24/20 08:49 Lisinopril 20 Mg Tablet PO 30 mg DAILY [facility] Administration Protocol Magnesium Hydroxide 30 ml 03/20/20 17:13 Milk Of Magnesia 30 Ml Oral.Susp PO DAILY PRN Constipation Melatonin 6 mg 03/19/20 21:00 03/23/20 20:10 Melatonin 3 Mg Tablet PO 6 mg BEDTIME ANDREAS Administration Omeprazole 20 mg 03/20/20 09:00 03/24/20 08:50 Omeprazole 20 Mg Capsule.Dr PO 20 mg DAILY ANDREAS Administration Trazodone HCl 50 mg 03/23/20 10:58 Trazodone Hcl 50 Mg Tablet PO BEDTIME MRX1 PRN Insomnia Zolpidem Tartrate 10 mg 03/19/20 21:00 03/23/20 20:10 Zolpidem Tartrate 5 Mg Tablet PO 10 mg BEDTIME ANDREAS Administration Allergies Allergies Allergy/AdvReac Type Severity Reaction Status Date / Time sulfamethoxazole Allergy Nausea and Verified 02/18/20 15:06 [From Bactrim] Vomiting trimethoprim [From Bactrim] Allergy Nausea and Verified 02/18/20 15:06 Vomiting Assessment & Plan Impression: pt remains stable and ready for discharge pt reports depression and SI fully resolved staff reports appropriate behavior dx: mdd cocaine use disorder intermittent explosive disorder plan: continue w current tx plan discuss dispo with primary team Greater than 50% of the session was spent on counseling and/or coordination of care Reason for contiued inpatient stay Substantial Risk for: med/psych decompensation
[2020-03-24 20:30] VITALS: BP 129/68; PULSE 65; TEMP 36.3
[2020-03-24] MEDS: Acetaminophen 325 MG TABLET 650 MG PO (20:35)
[2020-03-24] MEDS: Zolpidem Tartrate 5 MG TABLET 10 MG PO (20:35)
[2020-03-24 20:36] VITALS: BP 128/68; PULSE 65
[2020-03-24] MEDS: Melatonin 3 MG TABLET 6 MG PO (20:36)
[2020-03-24] MEDS: Doxazosin Mesylate 2 MG TABLET PO (20:36)
[2020-03-25 06:20] VITALS: BP 127/68; PULSE 77; RESP 16; TEMP 36.6; O2SAT 96
[2020-03-25 08:59] VITALS: BP 127/68; PULSE 77
[2020-03-25] MEDS: FLUoxetine HCl 20 MG CAPSULE 60 MG PO (08:59)
[2020-03-25] MEDS: Buprenorphine/Naloxone 8/2 mg FILM 1 FILM SUBLINGUAL ×3 (09:00→20:15)
[2020-03-25] MEDS: Omeprazole 20 MG CAPSULE.DR PO (09:05)
[2020-03-25] MEDS: ALPRAZolam 0.5 MG TABLET 1 MG PO ×2 (10:15→20:16)
--- NOTE | 2020-03-25 11:08 | P.PNPSI_ITS ---
Subjective Subjective Date of Service: 03/25/20 Reason For Visit: Depression Substance abuse Interim History: Pt with bright affect. He denies depressed mood, suicidal ideation. He reports sleeping and eating well. He agrees to return to [facility]. it appears they want covid test prior to pt returning there. He is taking medications as prescribed. No behavioral concerns. Review of Systems Review of Systems Depression and anxiety are positive Negatives are he denies any trauma he denies any illness he denies any fever no chills no dizziness no weakness no headache no chest pain no shortness of breath no cough no upper respiratory symptoms no abdominal pain no nausea no vomiting Mental Status Exam Mental Status Exam Narrative: Patient Appearance: Well Groomed (multiple tattoos on arms, body) and Appropriate Patient Orientation: Person, Place, Time and Situation Level of Consciousness: Appropriate Patient Behavior: Appropriate and Cooperative Mood Description: Appropriate Affect Description: Appropriate Ability to Follow Directions: Good Speech Pattern: Clear and Appropriate Hallucinations: None Delusions: Not Present Thought Process: Intact Thought Content: positive for Intact and positive for Goal Oriented Judgment.insight: Fair SI: none HI: none Patient Appearance: Well Grooomed (multiple tatoos on arms, body) and Appropriate Patient Orientation: Person, Place, Time and Situation Level of Consciousness: Appropriate Patient Behavior: Appropriate and Cooperative Mood Description: Appropriate Affect Description: Appropriate Ability to Follow Directions: Good Speech Pattern: Clear and Appropriate Diagnostics Vital Signs (24Hr): Vital Signs - 24 hr 03/24/20 13:00 03/24/20 20:30 03/24/20 20:36 Temperature 97.8 F 97.3 F Pulse Rate 86 65 65 Respiratory Rate 16 Blood Pressure 115/67 129/68 128/68 Pulse Oximetry 03/25/20 06:20 03/25/20 08:59 Temperature 98 F Pulse Rate 77 77 Respiratory Rate 16 Blood Pressure 127/68 127/68 Pulse Oximetry 96 Body Mass Index 27.8 Labs Results: 03/19/20 15:13 03/21/20 07:42 Medications Medications Current Medications Generic Name Dose Route Start Last Admin Trade Name Freq PRN Reason Stop Dose Admin Acetaminophen 650 mg 03/20/20 17:13 03/24/20 20:35 Acetaminophen 325 Mg Tablet PO 650 mg Q6H PRN Administration Headache/Pain Mild Scale (1-3) Al Hydroxide/Mg Hydroxide 30 ml 03/20/20 17:13 Magnesium Hydrox/Alum Hydrox 30 Ml Oral.Susp PO Q6H PRN Heartburn/Nausea Alprazolam 1 mg 03/25/20 09:15 03/25/20 10:15 Alprazolam 0.5 Mg Tablet PO 1 mg BID ANDREAS Administration Buprenorphine/Naloxone 1 film 03/19/20 21:00 03/25/20 09:00 Buprenorphine/Naloxone 8/2 Mg Film SUBLINGUAL 1 film TID ANDREAS Administration Docusate Sodium 100 mg 03/19/20 20:48 03/22/20 08:45 Docusate Sodium 100 Mg Capsule PO 100 mg BID PRN Administration Constipation Doxazosin Mesylate 2 mg 03/19/20 21:00 03/24/20 20:36 Doxazosin Mesylate 2 Mg Tablet PO 2 mg BEDTIME ANDREAS Administration Ergocalciferol 1,250 mcg 03/23/20 10:00 03/23/20 10:07 Ergocalciferol (Vitamin D2) 1,250 Mcg Capsule PO 1,250 mcg Vargas@1000 [facility] Administration Fluoxetine HCl 60 mg 03/20/20 09:00 03/25/20 08:59 Fluoxetine Hcl 20 Mg Capsule PO 60 mg DAILY [facility] Administration Fluticasone Propionate 1 puff 03/20/20 08:00 03/25/20 09:04 Fluticasone Propionate 100 Mcg Blst.W.Dev INHALE Not Given RBID [facility] Hydroxyzine HCl 25 mg 03/20/20 17:13 Hydroxyzine Hcl 25 Mg Tablet PO BEDTIME PRN Anxiety Lisinopril 30 mg 03/20/20 09:00 03/25/20 08:59 Lisinopril 20 Mg Tablet PO 30 mg DAILY [facility] Administration Protocol Magnesium Hydroxide 30 ml 03/20/20 17:13 Milk Of Magnesia 30 Ml Oral.Susp PO DAILY PRN Constipation Melatonin 6 mg 03/19/20 21:00 03/24/20 20:36 Melatonin 3 Mg Tablet PO 6 mg BEDTIME [facility] Administration Omeprazole 20 mg 03/20/20 09:00 03/25/20 09:05 Omeprazole 20 Mg Capsule.Dr PO 20 mg DAILY ANDREAS Administration Trazodone HCl 50 mg 03/23/20 10:58 Trazodone Hcl 50 Mg Tablet PO BEDTIME MRX1 PRN Insomnia Allergies Allergies Allergy/AdvReac Type Severity Reaction Status Date / Time sulfamethoxazole Allergy Nausea and Verified 02/18/20 15:06 [From Bactrim] Vomiting trimethoprim [From Bactrim] Allergy Nausea and Verified 02/18/20 15:06 Vomiting Assessment & Plan Assessment & Plan (1) Major depression, recurrent, chronic: Status: Acute Code(s): F33.9 - Major depressive disorder, recurrent, unspecified Assessment and Plan: 1. continue current medications. (2) Cocaine use disorder: Status: Acute Code(s): F14.10 - Cocaine abuse, uncomplicated (3) Opioid use disorder: Status: Acute Code(s): F11.99 - Opioid use, unspecified with unspecified opioid-induced disorder Assessment and Plan: 1. continue suboxone Greater than 50% of the session was spent on counseling and/or coordination of care Reason for contiued inpatient stay Substantial Risk for: stable for discharge
[2020-03-25 11:36] LABS: COVID-19 Test Negative (Negative)
[2020-03-25 13:00] VITALS: BP 126/68; PULSE 77; RESP 16; TEMP 36.3; O2SAT 95
[2020-03-25 18:00] VITALS: BP 131/78; PULSE 72; TEMP 36.3
[2020-03-25 20:16] VITALS: BP 131/78; PULSE 72
[2020-03-25] MEDS: Doxazosin Mesylate 2 MG TABLET PO (20:16)
[2020-03-25] MEDS: Melatonin 3 MG TABLET 6 MG PO (20:16)
[2020-03-25] MEDS: Zolpidem Tartrate 5 MG TABLET 10 MG PO (20:50)
[2020-03-26 06:00] VITALS: BP 108/71; PULSE 74; RESP 18; TEMP 36.6; O2SAT 96
[2020-03-26 08:17] VITALS: BP 108/71; PULSE 74
[2020-03-26] MEDS: FLUoxetine HCl 20 MG CAPSULE 60 MG PO (08:17)
[2020-03-26] MEDS: Fluticasone Propionate 100 MCG BLST.W.DEV 1 PUFF INHALE (08:17)
[2020-03-26] MEDS: ALPRAZolam 0.5 MG TABLET 1 MG PO (08:17)
[2020-03-26] MEDS: Omeprazole 20 MG CAPSULE.DR PO (08:17)
[2020-03-26] MEDS: Buprenorphine/Naloxone 8/2 mg FILM 1 FILM SUBLINGUAL (08:18)
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
== END 2020-03-26 13:18 | disposition home or self-care (01) | DRG 751 ==
LOC: HO.ED 03-20 16:53 → HO.PM5 03-20 17:08
PROVIDERS: Physician Assistant Medical; Admitting Provider Psychiatry & Neurology Psychiatry; Emergency Provider Emergency Medicine; Visit Provider Social Worker
DX: F33.9 Major depressive disorder, recurrent, unspecified (principal); R45.851 Suicidal ideations; F11.20 Opioid dependence, uncomplicated; F14.10 Cocaine abuse, uncomplicated; K21.9 Gastro-esophageal reflux disease without esophagitis; Z20.822 Contact with and (suspected) exposure to COVID-19; Z59.0 Homelessness; Z88.2 Allergy status to sulfonamides; Z79.899 Other long term (current) drug therapy
CPT/HCPCS: 36415; 80048; 80053; 80061; 80307; 80320; 82607; 82746; 84443; 85025; 87635; 93005; 99285

== ENCOUNTER → 2020-03-26 13:09 | Outpatient (BNVA) | payer MEDICAID, SELFPAY | PROVIDERS: Visit Provider Internal Medicine | DX: Z51.81 Encounter for therapeutic drug level monitoring (principal) | CPT/HCPCS: 80305; 99211 ==

== ENCOUNTER 2020-04-08 14:41 | Inpatient (IN) | payer OTHER, SELFPAY ==
--- NOTE | 2020-04-08 14:50 | ED.PSYCH ---
HPI - Psych General Chief Complaint: Psychiatric Symptoms Stated Complaint: crisis- SI Time Seen by Provider: 04/08/20 14:48 Source: patient and old records reviewed Mode of arrival: ambulatory Limitations: no limitations History of Present Illness MD complaint: feels depressed Onset (ago): day(s) (2) Duration: constant History of same: Yes Relieving factors: none Exacerbating factors: other (unstable living situation) Context: significant life stressor Associated psychiatric symptoms: depression and suicidal ideation Associated symptoms: denies other symptoms Treatments prior to arrival: none If self harm: admits thoughts of self harm Related Data Home Medications Medication Instructions Recorded Confirmed fluoxetine 20 mg capsule 60 mg PO DAILY 11/16/19 03/19/20 melatonin 5 mg capsule 5 mg PO BEDTIME cap 11/16/19 03/19/20 valacyclovir 1 gram tablet 1,000 mg PO BID 11/16/19 03/17/20 Flovent Diskus 110 mcg INHALATION BID 11/24/19 03/19/20 Vitamin D2 50,000 units PO QWEEK 11/24/19 03/19/20 terazosin 2 mg PO BEDTIME 11/24/19 03/19/20 buprenorphine-naloxone [Suboxone] 1 film SUBLINGUAL TID 03/19/20 03/19/20 docusate sodium 100 mg PO BID PRN 03/19/20 03/19/20 lisinopril 30 mg PO DAILY 03/19/20 03/19/20 sennosides [Senna Lax] 17.2 mg PO DAILY 03/19/20 03/19/20 Previous Rx's Medication Instructions Recorded Narcan 4 mg INTRANASAL Q2M PRN #2 ea 11/30/19 omeprazole 20 mg PO DAILY #30 cap 11/30/19 zolpidem [Ambien] 10 mg PO BEDTIME 14 Days #14 tab 11/30/19 Allergies Allergy/AdvReac Type Severity Reaction Status Date / Time sulfamethoxazole Allergy Nausea and Verified 04/08/20 15:04 [From Bactrim] Vomiting trimethoprim [From Bactrim] Allergy Nausea and Verified 04/08/20 15:04 Vomiting Review of Systems Review of Systems: Constitutional : No Fever, No Chills ENT/Mouth : No Ear Pain, No Nasal Congestion, No sore throat Eyes: No Eye Pain, No Swelling, No Redness Cardiovascular : No Chest Pain, No SOB Respiratory : No Cough, No Sputum, No Dyspnea Gastrointestinal : No Nausea, No Vomiting, No Diarrhea, No Hematochezia, No Melena Genitourinary : No Dysuria, No Urinary Frequency, No Hematuria Musculoskeletal : No Myalgias Skin : No Skin Lesions, No rash Neuro : No Weakness, No Numbness, No Paresthesias, No Dizziness, No Headache Psych : positive Anxiety, positive Depression, positive SI but vague, no HI All other systems reviewed and are negative [facility] Past Medical History Medical History Acid reflux Asthma Cocaine use disorder Dysuria Encounter for screening colonoscopy Intermittent explosive disorder Opioid use disorder Surgical History History of colonoscopy Hx of endoscopy Family History Family History Father History of stomach cancer Mother Hx of diabetes mellitus Social History Social History Household Members: None Housing: Other Alcohol intake: never Smoking Status: Never smoker Second Hand Smoke Exposure: Yes Substance Use Type: Crack/Cocaine, Former Substance User, Heroin, Marijuana and Opiates service: No Sexual orientation: Straight/Heterosexual Physical Exam Vital Signs: Appearance: Alert. Oriented X3. No acute distress. Eyes: Pupils equal, round and reactive to light. ENT: Pharynx normal. Neck: Normal inspection. Neck supple. CVS: Normal heart rate and rhythm. Pulses normal. Respiratory: No respiratory distress. Breath sounds normal. Abdomen: Soft and nontender. Skin: Skin warm and dry. Normal skin color. Normal skin turgor. Extremities: No lower extremity edema. No calf ttp Neuro: Oriented X 3. No motor deficit. No sensory deficit. Psych: normal affect, mildly anxious, depressed, vague SI, no HI Course Course Course Narrative: signed out pending BHN consult MDM - Psych MDM Narrative Medical decision making narrative: 55 yo male with recent M5 admit has vague SI but this seems more related to lack of stable housing - will need labs, BHN consult, sitter in place close observations, he came voluntarily and I believe there is low susp for self harm in the ED as well as this is most likely an issue due to housing Discharge Plan Discharge Clinical Impression: Major depression, recurrent, chronic Prescriptions: No Action sennosides [Senna Lax] 8.6 mg tablet 17.2 mg PO DAILY RF: 0 docusate sodium 100 mg Tablet 100 mg PO BID PRN (Reason: Constipation) RF: 0 lisinopril 20 mg tablet 30 mg PO DAILY RF: 0 buprenorphine-naloxone [Suboxone] 8-2 mg film 1 film sublingual TID RF: 0 Flovent Diskus 110 mcg 110 mcg inhalation BID RF: 0 Vitamin D2 50,000 units capsule 50,000 units PO QWEEK RF: 0 terazosin 2 mg 2 mg PO BEDTIME RF: 0 Narcan 4 mg/actuation spray,non-aerosol 4 mg intranasal Q2M PRN (Reason: opioid overdose) Qty: 2 RF: 0 omeprazole 20 mg capsule,delayed release(DR/EC) 20 mg PO DAILY Qty: 30 RF: 0 zolpidem [Ambien] 10 mg Tablet 10 mg PO BEDTIME 14 Days Qty: 14 RF: 1 valacyclovir [Valtrex] 1 gram tablet 1,000 mg PO BID RF: 0 melatonin 5 mg capsule 5 mg PO BEDTIME RF: 0 fluoxetine [Prozac] 20 mg capsule 60 mg PO DAILY RF: 0
[2020-04-08 15:04] VITALS: BP 125/75; PULSE 103; RESP 18; TEMP 36.8; O2SAT 95; BMI 26.9
[2020-04-08 15:33] LABS: MANUAL DIFF FLAG NO
[2020-04-08 15:39] LABS: Basophils Absolute Auto 0.1 X10*3/uL (0.0-0.2); Basophils Percent Auto 0.8 % (0-2); Eosinophils Absolute Auto 0.2 X10*3/uL (0.0-0.4); Eosinophils Percent Auto 2.5 % (0-4); Hematocrit 38.4 % (42-52); Hemoglobin 13.2 g/dl (14.0-18.0); Imm Gran Abs Auto 0.04 X10*3/uL (0.00-0.03); Imm Gran Pct Auto 0.5 % (0.0-0.4); Lymphocytes Absolute Auto 2.3 X10*3/uL (1.2-4.9); Lymphocytes Percent Auto 32.1 % (20-40); Mean Corpuscular HGB Conc 34.4 g/dl (31.0-36.0); Mean Corpuscular Hemoglobin 31.5 pg (27.0-33.0); Mean Corpuscular Volume 91.6 fL (80-98); Mean Platelet Volume 9.2 fL (9.4-12.4); Monocytes Absolute Auto 0.5 X10*3/uL (0.1-1.2); Monocytes Percent Auto 6.9 % (2-11); Neutrophils Absolute Auto 4.2 X10*3/uL (2.0-8.3); Neutrophils Percent Auto 57.2 % (45-73); Platelet Count 243 X10*3/uL (160-400); Red Blood Count 4.19 X10*6/uL (4.60-5.80); Red Cell Distribution Width 11.7 % (11.0-16.0); White Blood Count 7.3 X10*3/uL (4.8-10.8)
[2020-04-08 15:51] LABS: COVID-19 Test Negative (Negative)
[2020-04-08 16:08] LABS: Ethanol < 10 mg/dL
[2020-04-08 16:09] LABS: Amphetamine Screen Urine Not Detected (Not Detect); Barbiturates, Urine Not Detected (Not Detect); Benzodiazepines Screen Urine POSITIVE (Not Detect); Cannabinoid Screen Urine Not Detected (Not Detect); Cocaine Screen Urine Not Detected (Not Detect); Opiate Screen Urine Not Detected (Not Detect); Phencyclidine Screen Urine Not Detected (Not Detect)
[2020-04-08 16:11] LABS: Alanine Aminotransferase 12 U/L (0-40); Albumin Level 4.4 g/dL (3.5-5.0); Alkaline Phosphatase 90 U/L (39-117); Anion Gap 14 (12-20); Aspartate Amino Transferase 20 U/L (5-37); Bilirubin Direct 0.2 mg/dL (0.0-0.5); Bilirubin Total 0.7 mg/dL (0.0-1.0); Blood Urea Nitrogen 16 mg/dL (9-16); Calcium 9.1 mg/dL (8.4-10.2); Carbon Dioxide 23 mmol/L (22-29); Chloride 101 mmol/L (96-108); Creatinine Clr Calc Pharmacy 65.2; Estimated Glomerular Filt Rate > 60; Glucose Random 128 mg/dL (60-115); Potassium 4.7 mmol/L (3.3-5.1); Sodium 133 mmol/L (135-145)
--- NOTE | 2020-04-08 17:45 | PC.NURSE ---
faxed [facility], will call to confirm fax
[2020-04-08] MEDS: HaloperidoL 5 MG TABLET PO (19:27)
[2020-04-08] MEDS: LORazepam 1 MG TABLET 2 MG PO (19:27)
--- NOTE | 2020-04-08 19:27 | PC.NURSE ---
Pt became aggitated shouting i got the wrong dinner, you didn't give me my 5pm meds, i want to leave was swearing at staff and throwing bed linens. Pt was somewhat redirectable one security arrived. this rn reoriented patient to current limitations and need to speak with bhn. pt accepted po medications to help him calm down and await bhn shelia. Kerwin, lacrosse coach, at bedside now.
[2020-04-08 20:18] VITALS: BP 116/69; PULSE 67; RESP 18; O2SAT 96
--- NOTE | 2020-04-08 20:32 | PC.NURSE ---
Pt w/ Maura from CARE team at this time.
[2020-04-08] MEDS: Melatonin 3 MG TABLET 6 MG PO (20:51)
[2020-04-08] MEDS: ALPRAZolam 0.5 MG TABLET 1 MG PO (20:51)
[2020-04-08] MEDS: Buprenorphine/Naloxone 8/2 mg FILM 1 FILM SUBLINGUAL (20:52)
[2020-04-08 20:53] VITALS: BP 116/69; PULSE 69
[2020-04-08] MEDS: Doxazosin Mesylate 2 MG TABLET PO (20:53)
[2020-04-08] MEDS: Zolpidem Tartrate 5 MG TABLET 10 MG PO (21:04)
[2020-04-08] MEDS: Docusate Sodium 100 MG CAPSULE PO (21:04)
--- NOTE | 2020-04-08 21:06 | PC.NURSE ---
Pt declined medications charted against in emar, i took those at home .
--- NOTE | 2020-04-08 21:53 | MHC.CARE ---
Pt referred for [facility] shelia at [phone]. This technical writer contacted [facility] at 1915 re: ETA of a clinician to complete assessment. Per [facility], no clinician available until after 11pm, therefore pt was evaluated by CARE team. Pt is a [facility] 12 bedsearch for inpatient psych admission. Pt will remain in ED until bed placement is secured.
[2020-04-08 22:00] VITALS: RESP 14
--- NOTE | 2020-04-08 23:08 | PC.NURSE ---
Patient approached this commercial insurance underwriter and stated that the nurse was going to put him in a room. I explained that that was not the case and patient attempted to argue with me. I asked patient to go back to his bed. Patient began calling me a dyke and I told patient go back to his assigned bed.
[2020-04-09 02:09] VITALS: RESP 15
[2020-04-09 05:43] VITALS: RESP 16
[2020-04-09 09:53] VITALS: BP 113/74; PULSE 73
[2020-04-09] MEDS: FLUoxetine HCl 20 MG CAPSULE 60 MG PO (09:53)
[2020-04-09] MEDS: Buprenorphine/Naloxone 8/2 mg FILM 1 FILM SUBLINGUAL ×3 (09:53→21:48)
[2020-04-09] MEDS: ALPRAZolam 0.5 MG TABLET 1 MG PO ×2 (09:53→21:35)
[2020-04-09] MEDS: Omeprazole 20 MG CAPSULE.DR PO (09:53)
[2020-04-09] MEDS: Fluticasone Propionate 100 MCG BLST.W.DEV 1 PUFF INHALE (09:54)
[2020-04-09 10:34] VITALS: BP 113/74; PULSE 70; RESP 16; O2SAT 98
--- NOTE | 2020-04-09 10:35 | PC.NURSE ---
Patient sleeping. awakens easily to verbal stimuli. skin pwd, resp even and non labored. speaking in full, clear sentences. medicated per emar, pt cooperative w/ care.
--- NOTE | 2020-04-09 12:56 | MHC.CARE ---
Pt has been accepted to for Admission later today. Insurance authorization obtained.
--- NOTE | 2020-04-09 15:48 | PC.NURSE ---
Report given to Celi on M5
[2020-04-09 15:57] VITALS: BP 97/54; PULSE 60; RESP 16; TEMP 36.6; O2SAT 99
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
[2020-04-09 21:36] VITALS: BP 136/71; PULSE 78
[2020-04-09] MEDS: Melatonin 3 MG TABLET 6 MG PO (21:36)
[2020-04-09] MEDS: Doxazosin Mesylate 2 MG TABLET PO (21:36)
[2020-04-09] MEDS: Zolpidem Tartrate 5 MG TABLET 10 MG PO (21:48)
[2020-04-10 06:00] VITALS: BP 108/61; PULSE 87; TEMP 36.1
[2020-04-10] MEDS: ALPRAZolam 0.5 MG TABLET 1 MG PO ×2 (08:46→20:14)
[2020-04-10 08:47] VITALS: BP 108/61; PULSE 87
[2020-04-10] MEDS: FLUoxetine HCl 20 MG CAPSULE 60 MG PO (08:47)
[2020-04-10] MEDS: Omeprazole 20 MG CAPSULE.DR PO (08:47)
[2020-04-10] MEDS: Buprenorphine/Naloxone 8/2 mg FILM 1 FILM SUBLINGUAL ×3 (08:48→20:13)
[2020-04-10] MEDS: Docusate Sodium 100 MG CAPSULE PO ×2 (09:53→20:13)
[2020-04-10 18:00] VITALS: BP 133/78; PULSE 77; TEMP 36.4
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
[2020-04-10 20:13] VITALS: BP 133/78; PULSE 77
[2020-04-10] MEDS: Melatonin 3 MG TABLET 6 MG PO (20:13)
[2020-04-10] MEDS: Doxazosin Mesylate 2 MG TABLET PO (20:13)
[2020-04-10] MEDS: Zolpidem Tartrate 5 MG TABLET 10 MG PO (20:18)
[2020-04-10] MEDS: Fluticasone Propionate 100 MCG BLST.W.DEV 1 PUFF INHALE (20:19)
[2020-04-11 06:44] VITALS: BP 109/59; PULSE 74; RESP 16; TEMP 36.3; O2SAT 94
[2020-04-11] MEDS: ALPRAZolam 0.5 MG TABLET 1 MG PO (08:51)
[2020-04-11 08:52] VITALS: BP 119/65; PULSE 72
[2020-04-11] MEDS: Fluticasone Propionate 100 MCG BLST.W.DEV 1 PUFF INHALE (08:52)
[2020-04-11] MEDS: Omeprazole 20 MG CAPSULE.DR PO (08:52)
[2020-04-11] MEDS: FLUoxetine HCl 20 MG CAPSULE 60 MG PO (08:52)
[2020-04-11] MEDS: Buprenorphine/Naloxone 8/2 mg FILM 1 FILM SUBLINGUAL (08:52)
[2020-04-11] MEDS: Docusate Sodium 100 MG CAPSULE PO (08:52)
--- NOTE | 2020-04-11 11:30 | P.DS_ITS ---
DS: Providers Provider Date of Service: 05/05/20 <Isabel Donis - Last Filed: 05/05/20 09:55> Date of admission: 04/09/20 17:29 <Isabel Donis - Last Filed: 05/05/20 09:55> Date of discharge: 04/11/20 <Isabel Donis - Last Filed: 05/05/20 09:55> Primary care physician: Unknown Physician <Isabel Donis - Last Filed: 05/05/20 09:55> Attending physician on discharge: isabel donis <Isabel Donis - Last Filed: 05/05/20 09:55> DS: Diagnosis Discharge Diagnosis (1) Major depression, recurrent, chronic: Status: Acute <Isabel Donis - Last Filed: 05/05/20 09:55> (2) Intermittent explosive disorder: Status: Acute <Isabel Donis - Last Filed: 05/05/20 09:55> (3) Opioid use disorder, moderate, in early remission, on maintenance therapy, dependence: Status: Acute <Isabel Donis - Last Filed: 05/05/20 09:55> DS: Medications Discharge Medications Home Medications: Home Medications Medication Instructions Recorded Confirmed fluoxetine 20 mg capsule 60 mg PO DAILY 11/16/19 04/08/20 melatonin 5 mg capsule 5 mg PO BEDTIME cap 11/16/19 04/08/20 buprenorphine-naloxone [Suboxone] 1 film SUBLINGUAL TID 03/19/20 04/08/20 docusate sodium 100 mg PO BID PRN 03/19/20 04/08/20 Flovent HFA 1 puff PO BID 04/08/20 04/08/20 alprazolam 1 tab PO BID 04/08/20 04/08/20 ergocalciferol (vitamin D2) 1 cap PO QWEEK 04/08/20 04/08/20 lisinopril 1 tab PO DAILY 04/08/20 04/08/20 terazosin 1 cap PO BEDTIME 04/08/20 04/08/20 zolpidem [Ambien] 10 mg PO BEDTIME PRN 04/08/20 04/08/20 Previous Rx's Medication Instructions Recorded Narcan 4 mg INTRANASAL Q2M PRN #2 ea 11/30/19 omeprazole 20 mg PO DAILY #30 cap 11/30/19 <Isabel Donis - Last Filed: 05/05/20 09:55> Discharge Plan Discharge Patient Disposition: Home, Self-Care <Isabel Donis - Last Filed: 05/05/20 09:55> [facility] - 04/14/20 1:00 am (SUBOXONE) [facility] [Other] (walk in if needed) Armando Covington APRN [Advanced Practice Nurse] - 04/21/20 10:00 am <Isabel Donis - Last Filed: 05/05/20 09:55> Discharge Medications: Continued docusate sodium 100 mg Tablet 100 mg PO BID PRN (Reason: Constipation) RF: 0 Narcan 4 mg/actuation spray,non-aerosol 4 mg intranasal Q2M PRN (Reason: opioid overdose) Qty: 2 RF: 0 omeprazole 20 mg capsule,delayed release(DR/EC) 20 mg PO DAILY Qty: 30 RF: 0 alprazolam 1 mg tablet 1 tab PO BID RF: 0 terazosin 2 mg capsule 1 cap PO BEDTIME RF: 0 lisinopril 30 mg tablet 1 tab PO DAILY RF: 0 ergocalciferol (vitamin D2) 1,250 mcg (50,000 unit) capsule 1 cap PO QWEEK RF: 0 Flovent HFA 110 mcg/actuation HFA aerosol inhaler 1 puff PO BID RF: 0 zolpidem [Ambien] 10 mg tablet 10 mg PO BEDTIME PRN (Reason: Sleep) RF: 0 melatonin 5 mg capsule 5 mg PO BEDTIME RF: 0 fluoxetine [Prozac] 20 mg capsule 60 mg PO DAILY RF: 0 Discontinued sennosides [Senna Lax] 8.6 mg tablet 17.2 mg PO DAILY RF: 0 No Action buprenorphine-naloxone [Suboxone] 8-2 mg film 1 film sublingual TID 30 Days Qty: 90 RF: 0 <Isabel Doins - Last Filed: 05/05/20 09:55> Discharge Orders: Discharge Order (Routine); Ordered 04/11/20 Ordered By: Isabel Donis <Isabel Donis - Last Filed: 05/05/20 09:55> Diet: regular diet <Isabel Donis - Last Filed: 05/05/20 09:55> regular diet <Jovanni Dia MD - Last Filed: 05/08/20 14:11> Activity on Discharge: As tolerated <Isabelshakeel Donis - Last Filed: 05/05/20 09:55> As tolerated <Jovanni Dia MD - Last Filed: 05/08/20 14:11> Stand Alone Forms: Patient Portal Discharge page, Community Support <Isabel Woodscaritotita - Last Filed: 05/05/20 09:55> Care Plan Goals: 1. Follow up referrals 2. Take medications as prescribed <Isabel Chuckjayy - Last Filed: 05/05/20 09:55> Health Concerns: 1. Follow up with PCP <Isabel Chuckjayy - Last Filed: 05/05/20 09:55> Plan of Treatment: 1. Follow up with referrals 2. Take medications as prescribed <Isabel Chuckjayy - Last Filed: 05/05/20 09:55> Discharge Date/Time: 04/11/20 12:22 <Isabel Donis - Last Filed: 05/05/20 09:55> Mental Status Exam Mental Status Exam Narrative: Patient Appearance: Well Groomed (multiple tattoos on arms, body) and Appropriate Patient Orientation: Person, Place, Time and Situation Level of Consciousness: Appropriate Patient Behavior: Appropriate and Cooperative Mood Description: frustrated Affect Description: agitated, congruent Ability to Follow Directions: Good Speech Pattern: Clear and Appropriate Hallucinations: None Delusions: Not Present Thought Process: Intact Thought Content: positive for Intact and positive for Goal Oriented Judgment.insight: Fair SI: none HI: none <Isabel Woodsjayy - Last Filed: 05/05/20 09:55> Data Data Completed and Pending Completed studies during hospitalization [Text1]: 04/08/20 04/08/20 04/08/20 15:21 15:21 15:21 WBC 7.3 RBC 4.19 L Hgb 13.2 L Hct 38.4 L MCV 91.6 MCH 31.5 MCHC 34.4 RDW 11.7 Plt Count 243 MPV 9.2 L Immature Gran % (Auto) 0.5 H Neut % (Auto) 57.2 Lymph % (Auto) 32.1 Reynolds % (Auto) 6.9 Eos % (Auto) 2.5 Baso % (Auto) 0.8 Lymph # (Auto) 2.3 Reynolds # (Auto) 0.5 Eos # (Auto) 0.2 Baso # (Auto) 0.1 Abs Immat Gran (auto) 0.04 H Absolute Neuts (auto) 4.2 Absolute Nucleated RBC 0.000 Nucleated RBC % (auto) 0.0 Sodium 133 L Potassium 4.7 Chloride 101 Carbon Dioxide 23 Anion Gap 14 BUN 16 Creatinine 1.21 Estim Creat Clear Calc 65.2 Estimated GFR > 60 Random Glucose 128 H Calcium 9.1 Total Bilirubin 0.7 Direct Bilirubin 0.2 AST 20 D ALT 12 Alkaline Phosphatase 90 Total Protein 8.0 Albumin 4.4 Urine Opiates Screen Ur Barbiturates Screen Ur Phencyclidine Scrn Ur Amphetamines Screen U Benzodiazepines Scrn Urine Cocaine Screen U Marijuana (THC) Screen Ethyl Alcohol COVID-19 ([facility]) Negative COVID-19 Clin Com See Note 04/08/20 04/08/20 15:21 15:21 WBC RBC Hgb Hct MCV MCH MCHC RDW Plt Count MPV Immature Gran % (Auto) Neut % (Auto) Lymph % (Auto) Reynolds % (Auto) Eos % (Auto) Baso % (Auto) Lymph # (Auto) Reynolds # (Auto) Eos # (Auto) Baso # (Auto) Abs Immat Gran (auto) Absolute Neuts (auto) Absolute Nucleated RBC Nucleated RBC % (auto) Sodium Potassium Chloride Carbon Dioxide Anion Gap BUN Creatinine Estim Creat Clear Calc Estimated GFR Random Glucose Calcium Total Bilirubin Direct Bilirubin AST ALT Alkaline Phosphatase Total Protein Albumin Urine Opiates Screen Not Detected Ur Barbiturates Screen Not Detected Ur Phencyclidine Scrn Not Detected Ur Amphetamines Screen Not Detected U Benzodiazepines Scrn POSITIVE H Urine Cocaine Screen Not Detected U Marijuana (THC) Screen Not Detected Ethyl Alcohol < 10 COVID-19 ([facility]NA) COVID-19 Clin Com <Isabel Woodsjayy - Last Filed: 05/05/20 09:55> DS: Summary Hospital Course Hospital Course: Mr. Salazar is a 55 year-old male with hx of MDD, substance use in remission on opioid agonist. He self presented to [facility] ED at request of his OP psychotherapist as he disclosed suicidal ideation with plan to shoot himself in context of being homeless. In the ED, his utox was positive for benzodiazepines which he is currently prescribed by his OP provider. He was negative for opiates, amphetamines, cocaine. His BAL was negative. On the unit, pt presents as somewhat irritable. He openly admits that his suicidal ideation is conditional to not having a place to live. He admits that he wouldn't kill himself because he understands the impact it would have on his mother. He reports he is sleeping and eating well. He reports after discharge he went to [facility] but was asked to leave because he had an altercation with the staff. He reported that he does not want to go back to a alf because most people staying there use substances and this is a trigger for him. 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 We discussed risks, benefits and alternative treatment options. He agrees to continue current medications. He discussed adding mood stabilizer as pt is impulsive and reactive but he declined. Past Psychiatric History: Inpatient: M5 11/2019; M5 03/2020 due to depression/SI HOSPITAL COURSE Mr. Salazar was placed on 15 minutes checks for safety. On the unit, he quickly denied suicidal or homicidal ideation. He expressed his frustration about lack of housing but did note that in terms of his substance use he has worked hard and made significant progress. He was informed that hospital has limited resources in terms of finding placement for patients. He is already on several wait list for housing. He at times made provocative comments related to if others can't find housing he rather . But he would later admit that he has not plan nor intent, not even suicidal thoughts. He identified his mother as protective factor along with his own progress in terms of substance use treatment. We did discussed that he would benefit from a mood stabilizer, such as trileptal or depakote as he does have tendency to quickly become reactive and explosive. However, he agree to discuss this with his OP provider. On the unit, pt was visible and attended groups. He was social with select peers and often seen smiling and socializing. He did have some poor boundaries with peers and had to be reminded, but able to be redirectable. There were no incidences of disruptive behaviors nor use of restraints. <Isabel Donis - Last Filed: 05/05/20 09:55> Time spent discussing smoking cessation with patient: 3 to 10 minutes <Isabel Donis - Last Filed: 05/05/20 09:55> Status at Discharge Cognitive/behavioral status at discharge: Pt denies SI/HI. No signs of aggression towards self or others. Pt did admit to conditional suicidality depending on housing but denied any plan or intent. <Isabel Donis - Last Filed: 05/05/20 09:55> Functional status at discharge: independent ambulation <Isabel Donis - Last Filed: 05/05/20 09:55> Overall status at discharge: patient is back to baseline <sIabel Donis - Last Filed: 05/05/20 09:55> Time Spent with Patient Time attestation: Total time spent providing and/or coordinating discharge services: <Isabel Donis - Last Filed: 05/05/20 09:55>
== END 2020-04-11 12:22 | disposition home or self-care (01) | DRG 751 ==
LOC: HO.ED 04-09 17:31 → HO.PM5 04-09 18:27
PROVIDERS: Admitting Provider Psychiatry & Neurology Psychiatry; Emergency Provider Emergency Medicine; Visit Provider Social Worker
DX: F33.9 Major depressive disorder, recurrent, unspecified (principal); R45.851 Suicidal ideations; F11.20 Opioid dependence, uncomplicated; K21.9 Gastro-esophageal reflux disease without esophagitis; Z59.0 Homelessness; Z20.822 Contact with and (suspected) exposure to COVID-19; F63.81 Intermittent explosive disorder; Z79.51 Long term (current) use of inhaled steroids; Z79.899 Other long term (current) drug therapy
CPT/HCPCS: 36415; 80048; 80076; 80307; 80320; 85025; 87635; 99285

== ENCOUNTER → 2020-04-14 14:47 | Outpatient (BNVA) | payer MEDICAID, SELFPAY | PROVIDERS: Visit Provider Internal Medicine | DX: F11.99 Opioid use, unspecified with unspecified opioid-induced disorder (principal); Z79.899 Other long term (current) drug therapy | CPT/HCPCS: 80305; 99211 ==

== ENCOUNTER → 2020-05-05 11:10 | Outpatient (BNVA) | payer MEDICAID, SELFPAY | PROVIDERS: Visit Provider Internal Medicine | DX: Z51.81 Encounter for therapeutic drug level monitoring (principal) | CPT/HCPCS: 80305; 99211 ==

== ENCOUNTER → 2020-06-02 12:58 | Outpatient (BNVA) | payer OTHER, SELFPAY | PROVIDERS: Visit Provider Internal Medicine | DX: Z51.81 Encounter for therapeutic drug level monitoring (principal); F11.99 Opioid use, unspecified with unspecified opioid-induced disorder | CPT/HCPCS: 80305; 99211 ==

== ENCOUNTER → 2020-06-30 11:42 | Outpatient (BNVA) | payer OTHER, SELFPAY | PROVIDERS: Visit Provider Internal Medicine | DX: F11.21 Opioid dependence, in remission (principal) | CPT/HCPCS: 80305; 99211 ==

== ENCOUNTER → 2020-07-28 13:02 | Outpatient (BNVA) | payer MEDICAID, SELFPAY | PROVIDERS: Visit Provider Internal Medicine | DX: F11.21 Opioid dependence, in remission (principal) | CPT/HCPCS: 80305; 99212 ==

== ENCOUNTER → 2020-08-25 15:24 | Outpatient (BNVA) | payer OTHER, SELFPAY | PROVIDERS: Visit Provider Internal Medicine | DX: Z51.81 Encounter for therapeutic drug level monitoring (principal); F11.21 Opioid dependence, in remission | CPT/HCPCS: 80305; 99211 ==

== ENCOUNTER 2020-09-10 13:41 | Emergency (ER) | payer MEDICAID, SELFPAY ==
[2020-09-10 13:46] VITALS: BP 128/82; PULSE 92; RESP 16; TEMP 36.5; O2SAT 97; BMI 27.8
--- NOTE | 2020-09-10 15:22 | ED_ITS ---
HPI - Male Genitourinary General Chief complaint: Urogenital-Male Stated complaint: private area red, possible rash Time Seen by Provider: 09/10/20 15:10 Source: patient Mode of arrival: ambulatory Limitations: no limitations History of Present Illness HPI Narrative: Patient presents to the ED for painful redness/scabs around foreskin and at right tip of penis. states also burning on urination. Patient states no testicular pain, penile discharge. History of being involved 1 partner. Related Data Home Medications Medication Instructions Recorded Confirmed fluoxetine 20 mg capsule (Prozac) 60 mg PO DAILY 11/16/19 07/29/20 melatonin 5 mg capsule 5 mg PO BEDTIME cap 11/16/19 07/29/20 docusate sodium 100 mg tablet 100 mg PO BID PRN 03/19/20 07/29/20 alprazolam 1 mg tablet 1 tab PO BID 04/08/20 07/29/20 ergocalciferol (vitamin D2) 1,250 1 cap PO QWEEK 04/08/20 07/29/20 mcg (50,000 unit) capsule fluticasone propionate 110 1 puff PO BID 04/08/20 07/29/20 mcg/actuation HFA aerosol inhaler (Flovent HFA) lisinopril 30 mg tablet 1 tab PO DAILY 04/08/20 07/29/20 terazosin 2 mg capsule 1 cap PO BEDTIME 04/08/20 07/29/20 zolpidem 10 mg tablet (Ambien) 10 mg PO BEDTIME PRN 04/08/20 07/29/20 Previous Rx's Medication Instructions Recorded naloxone 4 mg/actuation nasal 4 mg INTRANASAL Q2M PRN #2 ea 11/30/19 spray (Narcan) omeprazole 20 mg capsule,delayed 20 mg PO DAILY #30 cap 11/30/19 release valacyclovir 1 gram tablet 1,000 mg PO TID #21 tab 07/30/20 (Valtrex) buprenorphine 8 mg-naloxone 2 mg 1 film SUBLINGUAL TID 28 Days #84 08/25/20 sublingual film (Suboxone) packet Allergies Allergy/AdvReac Type Severity Reaction Status Date / Time sulfamethoxazole Allergy Nausea and Verified 09/10/20 13:46 [From Bactrim] Vomiting trimethoprim [From Bactrim] Allergy Nausea and Verified 09/10/20 13:46 Vomiting Review of Systems Review of Systems: Yes all other systems are reviewed and are negative Constitutional: Constitutional: Reports as per HPI and Reports no additional constitutional complaints Eyes: Eyes: Reports as per HPI and Reports no additional eye complaints ENT: Reports system reviewed and no additional complaints, except as documented and Reports as per HPI Cardiovascular: Cardiovascular: Reports as per HPI and Reports no additional cardiovascular complaints Respiratory: Respiratory: Reports as per HPI and Reports no additional respiratory complaints Gastrointestinal: Gastrointestinal: Reports as per HPI and Reports no additional gastrointestinal complaints Genitourinary: Genitourinary: Reports no additional male genitourinary complaints and Reports as per HPI Comments: skin irriation on glans penis and foreskin Musculoskeletal: Musculoskeletal: Reports no additional musculoskeletal complaints and Reports as per HPI Neurologic: Reports system reviewed and no additional complaints, except as documented and Reports as per HPI Psychiatric: Psychiatric: Reports no additional psychiatric complaints and Reports as per HPI PMF Past Medical History Medical History Acid reflux Asthma Cocaine use disorder Dysuria Encounter for screening colonoscopy Intermittent explosive disorder Opioid use disorder Surgical History History of colonoscopy Hx of endoscopy Family History Family History Father History of stomach cancer Mother Hx of diabetes mellitus Social History Social History Household Members: None Household Members Other:: Homeless Housing: Homeless Housing Other:: half-way Do you presently have visiting nurse or other home services: No Unable to assess alcohol history related to: Unknown Alcohol intake: current Alcohol intake frequency: 0-2 drinks per day Substance Use Type: Crack/Cocaine, Marijuana and Opiates Advance Directives: No Advance Directives Information Provided: No service: No Sexual orientation: Straight/Heterosexual Physical Exam Vital Signs: Vital Signs: Last Vital Signs Temp 97.7 F 09/10/20 13:46 Pulse 92 09/10/20 13:46 Resp 16 09/10/20 13:46 BP 128/82 09/10/20 13:46 Pulse Ox 97 09/10/20 13:46 Body Mass Index 27.8 Const: General: cooperative, healthy appearing, comfortable, no acute distress, well developed, alert, awake and Physically active Orientation/consciousness: patient oriented x3 HENMT: Head: Yes normal to inspection, Yes No palpable skull fracture present, Yes normocephalic and Yes atraumatic Eyes: General: appearance normal, both eyes and all related structures Neck: Neck: Yes normal visual inspection, Yes full ROM, Yes no lymphadenopathy, Yes no meningeal signs, Yes trachea midline, Yes supple and No tender Chest: Chest palpation & inspection: normal inspection of the chest and normal palpation of entire chest wall Resp: Effort & Inspection: normal respiratory effort and able to speak in complete sentences Auscultation: clear to auscultation bilaterally Cardio: Jugular venous distension: no JVD Heart sounds: S1 normal heart lv nd present and S2 normal heart sound present GI: Inspection: Yes normal to inspection and No abdominal wall ecchymosis Palpation (GI): Soft to palpation, not firm, nontender, no guarding and not rigid : General: No CVA tenderness and Yes no CVA tenderness Male genitals images: 1. Area of pruritic erythematous rash with some white curd-like exudates. 2. Area of skin irritation erythema that is tender. Negative for vesicular l esions. Negative for chancroid Back/Spine/Pelvis: Back: no CVA tenderness, No CVA tenderness and No back tenderness Skin: General skin exam: no rashes or lesions noted and elasticity normal Neuro: General: patient oriented x3, gait normal, no meningeal signs and CN's II-XI intact bilaterally Cranial nerves: Yes CN's II-XII intact bilaterally Extrem: General: Yes normal to inspection and Yes full ROM Psych: Appearance: grossly normal, well kempt and not disheveled Course Course Course Narrative: history physical exam indicate balanitis, due to patient stating unprotected sexual activity was sent for chlamydia and gonorrhea and HSV swab. Reevaluation(s) Reevaluation #1: Patient left before I could discussed with him potential em piric STI treatment and discharging medication for treatment for balanitis and possibly HSV treatment. Time: 15:40 MDM - Male Genitourinary MDM Narrative Medical decision making narrative: balanitis Lab Data Labs: Lab Results 09/10/20 Range/Units 15:44 Urine Color YELLOW Urine Appearance CLEAR Urine pH 6.0 (5.0-8.0) Ur Specific [place] >= 1.030 H (1.005-1.025) Urine Protein TRACE (NEG-TRACE) MG/DL Urine Glucose (UA) NEG (NEG) MG/DL Urine Ketones 15 (NEG) MG/DL Urine Blood NEG (NEG) Urine Nitrite NEG (NEG) Ur Leukocyte Esterase NEG (NEG) Discharge Plan Discharge Clinical Impression: Balanitis Patient Disposition: Elopement Prescriptions: No Action buprenorphine-naloxone [Suboxone] 8-2 mg film 1 film sublingual TID 28 Days Qty: 84 RF: 0 docusate sodium 100 mg Tablet 100 mg PO BID PRN (Reason: Constipation) RF: 0 Narcan 4 mg/actuation spray,non-aerosol 4 mg intranasal Q2M PRN (Reason: opioid overdose) Qty: 2 RF: 0 omeprazole 20 mg capsule,delayed release(DR/EC) 20 mg PO DAILY Qty: 30 RF: 0 alprazolam 1 mg tablet 1 tab PO BID RF: 0 terazosin 2 mg capsule 1 cap PO BEDTIME RF: 0 lisinopril 30 mg tablet 1 tab PO DAILY RF: 0 ergocalciferol (vitamin D2) 1,250 mcg (50,000 unit) capsule 1 cap PO QWEEK RF: 0 Flovent HFA 110 mcg/actuation HFA aerosol inhaler 1 puff PO BID RF: 0 zolpidem [Ambien] 10 mg tablet 10 mg PO BEDTIME PRN (Reason: Sleep) RF: 0 melatonin 5 mg capsule 5 mg PO BEDTIME RF: 0 fluoxetine [Prozac] 20 mg capsule 60 mg PO DAILY RF: 0 valacyclovir [Valtrex] 1 gram tablet 1,000 mg PO TID Qty: 21 RF: 3 Interventions: ED Discharge Assessment Last Done: 09/10/20 17:10 Discharge Date/Time: 09/10/20 17:10
[2020-09-10 15:56] LABS: Glucose Urine UA NEG (NEG); Leukocyte Esterase Urine NEG (NEG); Nitrite Urine NEG (NEG); Specific Gravity - Urine >= 1.030 (1.005-1.025); Urine Blood NEG (NEG); Urine Ketones 15 MG/DL (NEG); Urine Protein TRACE MG/DL (NEG-TRACE)
[2020-09-10 15:57] LABS: Appearance Urine CLEAR; Color Urine YELLOW
[2020-09-11 09:05] LABS: CT PCR NOT DETECTED (Not Detect.); NG PCR NOT DETECTED (Not Detect.)
== END 2020-09-10 17:10 | disposition left against medical advice (07) ==
PROVIDERS: Physician Assistant; Emergency Provider Emergency Medicine; PCP Internal Medicine
DX: N48.1 Balanitis (principal)
CPT/HCPCS: 81003; 87255; 87491; 87591; 99283; 99284

== ENCOUNTER → 2020-09-22 14:06 | Outpatient (BNVA) | payer MEDICAID, SELFPAY | PROVIDERS: Visit Provider Internal Medicine | DX: Z51.81 Encounter for therapeutic drug level monitoring (principal) | CPT/HCPCS: 80305; 99211 ==

== ENCOUNTER → 2020-10-20 14:37 | Outpatient (BNVA) | payer MEDICAID, SELFPAY | PROVIDERS: Visit Provider Internal Medicine | DX: F14.99 Cocaine use, unspecified with unspecified cocaine-induced disorder (principal); F11.21 Opioid dependence, in remission; F63.81 Intermittent explosive disorder; Z88.1 Allergy status to other antibiotic agents; Z88.2 Allergy status to sulfonamides; Z59.0 Homelessness; Z51.81 Encounter for therapeutic drug level monitoring | CPT/HCPCS: 80305; 99212 ==

== ENCOUNTER → 2020-11-14 14:02 | Outpatient (BNVA) | payer MEDICAID, SELFPAY | PROVIDERS: Visit Provider Internal Medicine | DX: F11.21 Opioid dependence, in remission (principal) | CPT/HCPCS: 80305; 99212 ==

== ENCOUNTER → 2020-12-12 14:37 | Outpatient (BNVA) | payer MEDICAID, SELFPAY | PROVIDERS: Visit Provider Internal Medicine | DX: F11.21 Opioid dependence, in remission (principal) | CPT/HCPCS: 80305; 99212 ==

== ENCOUNTER → 2021-01-09 14:36 | Outpatient (BNVA) | payer MEDICAID, SELFPAY | PROVIDERS: PCP Internal Medicine; Referring Provider Internal Medicine; Visit Provider Internal Medicine | DX: Z51.81 Encounter for therapeutic drug level monitoring (principal); F11.21 Opioid dependence, in remission | CPT/HCPCS: 80305; 99212 ==

== ENCOUNTER → 2021-02-13 13:52 | Outpatient (BNVA) | payer MEDICAID, SELFPAY | PROVIDERS: Visit Provider Internal Medicine | DX: Z51.81 Encounter for therapeutic drug level monitoring (principal); F11.21 Opioid dependence, in remission | CPT/HCPCS: 80305; 99212 ==

== ENCOUNTER → 2021-03-13 12:02 | Outpatient (BNVA) | payer MEDICAID, SELFPAY | PROVIDERS: Visit Provider Internal Medicine | DX: F11.20 Opioid dependence, uncomplicated (principal) | CPT/HCPCS: 99212 ==

== ENCOUNTER → 2021-04-10 14:00 | Outpatient (BNVA) | payer MEDICAID, SELFPAY | PROVIDERS: Visit Provider Internal Medicine | DX: Z51.81 Encounter for therapeutic drug level monitoring (principal); F11.21 Opioid dependence, in remission | CPT/HCPCS: 80305; 99212 ==

== ENCOUNTER → 2021-05-08 14:05 | Outpatient (BNVA) | payer MEDICAID, SELFPAY | PROVIDERS: Visit Provider Internal Medicine | DX: F11.21 Opioid dependence, in remission (principal); Z51.81 Encounter for therapeutic drug level monitoring; Z79.899 Other long term (current) drug therapy | CPT/HCPCS: 80305; 99212 ==

== ENCOUNTER → 2021-06-05 14:41 | Outpatient (BNVA) | payer MEDICAID, SELFPAY | PROVIDERS: Visit Provider Internal Medicine | DX: Z51.81 Encounter for therapeutic drug level monitoring (principal); F11.21 Opioid dependence, in remission | CPT/HCPCS: 80305; 99212 ==

== ENCOUNTER → 2021-07-03 13:58 | Outpatient (BNVA) | payer MEDICAID, SELFPAY | PROVIDERS: Visit Provider Internal Medicine | DX: Z51.81 Encounter for therapeutic drug level monitoring (principal); F11.21 Opioid dependence, in remission | CPT/HCPCS: 80305; 99212 ==

== ENCOUNTER → 2021-07-31 13:50 | Outpatient (BNVA) | payer MEDICAID, SELFPAY | PROVIDERS: Visit Provider Internal Medicine | DX: F11.20 Opioid dependence, uncomplicated (principal) | CPT/HCPCS: 80305; 99212 ==

== ENCOUNTER → 2021-08-28 14:45 | Outpatient (BNVA) | payer MEDICAID, SELFPAY | PROVIDERS: Visit Provider Internal Medicine | DX: Z51.81 Encounter for therapeutic drug level monitoring (principal); F11.21 Opioid dependence, in remission | CPT/HCPCS: 80305; 99212 ==

== ENCOUNTER → 2021-09-25 13:00 | Outpatient (BNVA) | payer MEDICAID, SELFPAY | PROVIDERS: Visit Provider Internal Medicine | DX: F11.21 Opioid dependence, in remission (principal); Z51.81 Encounter for therapeutic drug level monitoring; Z59.02 Unsheltered homelessness | CPT/HCPCS: 99212 ==

== ENCOUNTER → 2021-10-23 13:08 | Outpatient (BNVA) | payer MEDICAID, SELFPAY | PROVIDERS: Visit Provider Internal Medicine | DX: F11.20 Opioid dependence, uncomplicated (principal) | CPT/HCPCS: 99212 ==

== ENCOUNTER 2021-11-20 16:21 | Outpatient (REF) | payer MEDICAID, SELFPAY ==
[2021-11-24 08:05] LABS: Benzoylecgonine 1149
== END 2021-11-20 16:22 | disposition home or self-care (01) ==
LOC: HO.LNP 16:21
PROVIDERS: Visit Provider Internal Medicine
DX: F11.21 Opioid dependence, in remission (principal); Z79.899 Other long term (current) drug therapy
CPT/HCPCS: 80353; 99212

== ENCOUNTER → 2021-12-18 13:57 | Outpatient (BNVA) | payer MEDICAID, SELFPAY | PROVIDERS: Visit Provider Internal Medicine | DX: Z51.81 Encounter for therapeutic drug level monitoring (principal); F11.21 Opioid dependence, in remission | CPT/HCPCS: 99212 ==

== ENCOUNTER → 2022-01-13 13:25 | Outpatient (BNVA) | payer MEDICAID, SELFPAY | PROVIDERS: Visit Provider Internal Medicine | DX: F11.20 Opioid dependence, uncomplicated (principal) | CPT/HCPCS: 99212 ==

== ENCOUNTER → 2022-02-05 13:26 | Outpatient (BNVA) | payer MEDICAID, SELFPAY | PROVIDERS: PCP Internal Medicine; Visit Provider Nurse Practitioner Psychiatric/Mental Health | DX: Z51.81 Encounter for therapeutic drug level monitoring (principal); F11.21 Opioid dependence, in remission | CPT/HCPCS: 80305; 99212 ==

== ENCOUNTER → 2022-03-05 13:45 | Outpatient (BNVA) | payer MEDICAID, SELFPAY | PROVIDERS: PCP Internal Medicine; Visit Provider Nurse Practitioner Psychiatric/Mental Health | DX: Z51.81 Encounter for therapeutic drug level monitoring (principal); F11.21 Opioid dependence, in remission; F14.10 Cocaine abuse, uncomplicated | CPT/HCPCS: 80305; 99212 ==

== ENCOUNTER → 2022-04-02 13:27 | Outpatient (BNVA) | payer MEDICAID, SELFPAY | PROVIDERS: PCP Internal Medicine; Visit Provider Nurse Practitioner Psychiatric/Mental Health | DX: F11.20 Opioid dependence, uncomplicated (principal); F14.10 Cocaine abuse, uncomplicated | CPT/HCPCS: 99212 ==

== ENCOUNTER → 2022-05-17 13:46 | Outpatient (BNVA) | payer MEDICAID, SELFPAY | PROVIDERS: PCP Internal Medicine; Visit Provider Nurse Practitioner Psychiatric/Mental Health | DX: F11.20 Opioid dependence, uncomplicated (principal) | CPT/HCPCS: 80305; 99212 ==

== ENCOUNTER → 2022-06-14 13:53 | Outpatient (BNVA) | payer MEDICAID, SELFPAY | PROVIDERS: PCP Internal Medicine; Visit Provider Nurse Practitioner Psychiatric/Mental Health | DX: F11.20 Opioid dependence, uncomplicated (principal); F14.10 Cocaine abuse, uncomplicated | CPT/HCPCS: 99212 ==

== ENCOUNTER → 2022-07-12 14:05 | Outpatient (BNVA) | payer MEDICAID, SELFPAY | PROVIDERS: PCP Internal Medicine; Visit Provider Nurse Practitioner Psychiatric/Mental Health | DX: Z51.81 Encounter for therapeutic drug level monitoring (principal); F11.21 Opioid dependence, in remission; F14.10 Cocaine abuse, uncomplicated | CPT/HCPCS: 80305; 99212 ==

== ENCOUNTER 2022-07-15 07:59 | Emergency (ER) | payer MEDICAID, SELFPAY ==
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
[2022-07-15 08:08] VITALS: BP 134/85; PULSE 71; RESP 18; TEMP 36.6; O2SAT 98; BMI 31.0
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
[2022-07-15] MEDS: Cyclobenzaprine HCl 10 MG TABLET PO (08:19)
[2022-07-15 08:20] LABS: MANUAL DIFF FLAG NO
[2022-07-15] MEDS: Acetaminophen 325 MG TABLET 975 MG PO (08:20)
[2022-07-15 08:22] LABS: Basophils Percent Auto 0.6 % (0-2); Eosinophils Absolute Auto 0.4 X10*3/uL (0.0-0.4); Eosinophils Percent Auto 6.5 % (0-4); Hematocrit 33.9 % (42.0-52.0); Hemoglobin 11.3 g/dl (14.0-18.0); Imm Gran Abs Auto 0.02 X10*3/uL (0.00-0.03); Imm Gran Pct Auto 0.3 % (0.0-0.4); Lymphocytes Absolute Auto 2.7 X10*3/uL (1.2-4.9); Lymphocytes Percent Auto 42.5 % (20-40); Mean Corpuscular HGB Conc 33.3 g/dl (31.0-36.0); Mean Corpuscular Hemoglobin 31.3 pg (27.0-33.0); Mean Corpuscular Volume 93.9 fL (80.0-98.0); Monocytes Absolute Auto 0.5 X10*3/uL (0.1-1.2); Monocytes Percent Auto 8.5 % (2-11); Neutrophils Absolute Auto 2.6 x10*3/uL (2.0-8.3); Neutrophils Percent Auto 41.6 % (45-73); Platelet Count 234 X10*3/uL (160-400); Red Blood Count 3.61 X10*6/uL (4.60-5.80); Red Cell Distribution Width 12.2 % (11.0-16.0); White Blood Count 6.3 X10*3/uL (4.8-10.8)
[2022-07-15 08:33] LABS: Anion Gap 12 (12-20); Blood Urea Nitrogen 19 mg/dL (9-16); Calcium 9.4 mg/dL (8.4-10.2); Carbon Dioxide 27 mmol/L (22-29); Chloride 102 mmol/L (96-108); Estimated Glomerular Filt Rate 44; Glucose Random 141 mg/dL (60-115); Potassium 3.9 mmol/L (3.3-5.1); Sodium 137 mmol/L (135-145)
[2022-07-15 08:51] VITALS: TEMP 35.8
[2022-07-15] MEDS: iohexoL 350 MG/ML 100 ML INFUS..BTL 85 ML IV (08:51)
[2022-07-15 10:44] VITALS: BP 134/76; PULSE 77; RESP 18; O2SAT 98
== END 2022-07-15 10:48 | disposition home or self-care (01) ==
PROVIDERS: Emergency Provider Emergency Medicine
DX: G89.11 Acute pain due to trauma (principal); R07.89 Other chest pain; R10.9 Unspecified abdominal pain; S22.42XA Multiple fractures of ribs, left side, initial encounter for closed fracture; S22.049A Unspecified fracture of fourth thoracic vertebra, initial encounter for closed fracture; S22.059A Unspecified fracture of T5-T6 vertebra, initial encounter for closed fracture; V13.4XXA Pedal cycle driver injured in collision with car, pick-up truck or van in traffic accident, initial encounter; Y93.55 Activity, bike riding; Y92.414 Local residential or business street as the place of occurrence of the external cause; Y99.9 Unspecified external cause status
CPT/HCPCS: 36415; 71260; 74177; 80048; 85025; 99283; 99284; Q9967